=== PATIENT | female | born 1950 | race Caucasian/White ===

== ENCOUNTER → 2016-11-13 | Outpatient (REF) | payer OTHER | LOC: M LAB REF 13:30 | PROVIDERS: ATTEND Physician Assistant Medical | DX: R30.0 Dysuria (principal); R31.0 Gross hematuria ==

== ENCOUNTER → 2017-02-12 | Outpatient (REF) | payer OTHER | LOC: M LAB REF 13:05 | PROVIDERS: ATTEND Family Medicine | DX: R31.0 Gross hematuria (principal) ==

== ENCOUNTER → 2017-04-13 | Outpatient (CLI) | payer OTHER ==
--- NOTE | 2017-04-13 10:03 | REPMRS ---
Patient History The patient states she had a clinical breast exam in February 2017.Patient is postmenopausal. Benign radio exam breast specimen of the right breast, August 09, 2015. Benign stereotatic loc for ea lesion of the right breast, August 09, 2015. Digital Mammo Screening Bilat: April 13, 2017 - Exam #: [id number] Bilateral CC and MLO view(s) were taken. Technologist: Anisha Devine, Technologist Prior study comparison: April 11, 2016, right breast digital mammo diagnostic unilateral performed at [facility]. August 09, 2015, right breast digital bilateral screening mammo performed at [facility]. July 07, 2015, digital bilateral screening mammo, performed at [facility]. FINDINGS: There are scattered fibroglandular densities. There has been no change in the appearance of the mammogram from the prior studies. There is a mild amount of scattered fibroglandular density which is fairly symmetric. There is no interval development of dominant mass, architectural distortion, or clustered microcalcification suggestive of malignancy. ASSESSMENT: BI-RADS/ACR category 1 mammogram. Negative. Recommendation Routine screening mammogram in 1 year (for women over age 40). This mammogram was interpreted with the aid of an FDA-approved computer-aided dectection system. Electronically Signed By: Jarret Dick MD 04/13/17 0213
== END ==
LOC: M RAD 08:03
PROVIDERS: ATTEND Family Medicine
DX: Z12.31 Encounter for screening mammogram for malignant neoplasm of breast (principal); Z78.0 Asymptomatic menopausal state

== ENCOUNTER → 2017-09-14 | Outpatient (REF) | payer OTHER ==
[2017-09-14 12:27] LABS: BASO # 0.1 10^3/uL (0.0-0.2); BASO % 0.6 % (0.0-1.0); EOS # 0.2 10^3/uL (0.0-0.50); IMMATURE GRANULOCYTE % 0.4 % (0-0); LYMPH # 2.6 10^3/uL (1.5-4.5); LYMPH % 32.9 % (24.0-44.0); MEAN CORPUSCULAR HGB CONC 33.8 g/dl (32.0-36.5); MEAN CORPUSCULAR VOLUME 91.6 fl (80.0-96.0); MONO # 0.5 10^3/uL (0.0-0.8); MONO % 6.2 % (0.0-5.0); NEUTROPHILS # 4.6 10^3/uL (1.8-7.7); NEUTROPHILS % 57.9 % (36.0-66.0); PLATELET COUNT, AUTOMATED 309 10^3/uL (150-450); RED CELL DISTRIBUTION WIDTH 12.8 % (11.5-14.5); WHITE BLOOD COUNT 7.9 10^3/uL (4.0-10.0)
[2017-09-14 12:40] LABS: ALBUMIN 3.8 GM/DL (3.2-5.2); ALKALINE PHOSPHATASE 101 U/L (45-117); ALT/SGPT 27 U/L (12-78); ANION GAP 7 MEQ/L (8-16); AST/SGOT 14 U/L (7-37); BILIRUBIN,TOTAL 0.6 MG/DL (0.2-1.0); BLOOD UREA NITROGEN 18 MG/DL (7-18); CALCIUM LEVEL 9.5 MG/DL (8.8-10.2); CARBON DIOXIDE LEVEL 30 MEQ/L (21-32); CHLORIDE LEVEL 103 MEQ/L (98-107); CHOLESTEROL LEVEL 154 MG/DL (<200); CREATININE FOR GFR 0.61 MG/DL (0.55-1.02); GLOMERULAR FILTRATION RATE > 60.0 (>45); GLUCOSE, FASTING 137 MG/DL (80-110); POTASSIUM SERUM 4.7 MEQ/L (3.5-5.1); SODIUM LEVEL 140 MEQ/L (136-145); TOTAL PROTEIN 7.6 GM/DL (6.4-8.2); TRIGLYCERIDES LEVEL 139 MG/DL (<150)
== END ==
LOC: M LABDRAW1 09:12
PROVIDERS: ATTEND Family Medicine
DX: E11.9 Type 2 diabetes mellitus without complications (principal)

== ENCOUNTER → 2017-09-19 | Outpatient (REF) | payer OTHER | LOC: M LAB REF 12:52 | PROVIDERS: ATTEND Family Medicine | DX: E11.9 Type 2 diabetes mellitus without complications (principal) ==

== ENCOUNTER → 2017-12-17 | Outpatient (REF) | payer OTHER ==
[2017-12-17 11:56] LABS: ALBUMIN 3.8 GM/DL (3.2-5.2); ALBUMIN/GLOBULIN RATIO 1.06 (1.00-1.93); ALKALINE PHOSPHATASE 98 U/L (45-117); ALT/SGPT 19 U/L (12-78); ANION GAP 9 MEQ/L (8-16); AST/SGOT 14 U/L (7-37); BILIRUBIN,TOTAL 0.4 MG/DL (0.2-1.0); BLOOD UREA NITROGEN 22 MG/DL (7-18); CALCIUM LEVEL 9.3 MG/DL (8.8-10.2); CARBON DIOXIDE LEVEL 27 MEQ/L (21-32); CHLORIDE LEVEL 104 MEQ/L (98-107); CREATININE FOR GFR 0.65 MG/DL (0.55-1.30); GLOMERULAR FILTRATION RATE > 60.0 (>45); GLUCOSE, FASTING 154 MG/DL (70-100); POTASSIUM SERUM 4.2 MEQ/L (3.5-5.1); SODIUM LEVEL 140 MEQ/L (136-145); TOTAL PROTEIN 7.4 GM/DL (6.4-8.2)
[2017-12-17 12:39] LABS: ESTIMATED AVERAGE GLUCOSE 146 MG/DL (60-110); HEMOGLOBIN A1c 6.7 %
== END ==
LOC: M LABDRAW1 08:17
DX: E11.9 Type 2 diabetes mellitus without complications (principal); E55.9 Vitamin D deficiency, unspecified

== ENCOUNTER → 2018-04-15 | Outpatient (CLI) | payer OTHER | LOC: M RAD 08:25 | DX: Z12.31 Encounter for screening mammogram for malignant neoplasm of breast (principal); Z92.89 Personal history of other medical treatment | CPT/HCPCS: 77067 ==

== ENCOUNTER → 2018-06-20 | Outpatient (REF) | payer OTHER ==
[2018-06-20 12:56] LABS: BASO % 0.6 % (0.0-1.0); EOS # 0.1 10^3/uL (0.0-0.50); EOS % 1.5 % (0.0-3.0); HEMATOCRIT 39.4 % (36.0-47.0); HEMOGLOBIN 13.2 g/dl (12.0-15.5); IMMATURE GRANULOCYTE % 0.5 % (0-3.0); LYMPH % 30.7 % (24.0-44.0); MEAN CORPUSCULAR HEMOGLOBIN 30.8 pg (27.0-33.0); MEAN CORPUSCULAR HGB CONC 33.5 g/dl (32.0-36.5); MEAN CORPUSCULAR VOLUME 91.8 fl (80.0-96.0); MONO # 0.4 10^3/uL (0.0-0.8); MONO % 6.4 % (0.0-5.0); NEUTROPHILS # 3.9 10^3/uL (1.8-7.7); NEUTROPHILS % 60.3 % (36.0-66.0); PLATELET COUNT, AUTOMATED 304 10^3/uL (150-450); RED BLOOD COUNT 4.29 10^6/uL (4.00-5.40); RED CELL DISTRIBUTION WIDTH 12.8 % (11.5-14.5); WHITE BLOOD COUNT 6.5 10^3/uL (4.0-10.0)
[2018-06-20 13:08] LABS: TOTAL 25(OH) VITAMIN D 57.2 NG/ML (30.0-100.0)
[2018-06-20 13:20] LABS: ALBUMIN 3.7 GM/DL (3.2-5.2); ALKALINE PHOSPHATASE 99 U/L (45-117); ALT/SGPT 27 U/L (12-78); ANION GAP 8 MEQ/L (8-16); AST/SGOT 15 U/L (7-37); BILIRUBIN,TOTAL 0.7 MG/DL (0.2-1.0); BLOOD UREA NITROGEN 21 MG/DL (7-18); CALCIUM LEVEL 9.1 MG/DL (8.8-10.2); CARBON DIOXIDE LEVEL 26 MEQ/L (21-32); CHLORIDE LEVEL 106 MEQ/L (98-107); CHOLESTEROL LEVEL 150 MG/DL (<200); CHOLESTEROL RISK RATIO 3.488 (<5); CREATININE FOR GFR 0.61 MG/DL (0.55-1.30); GLOMERULAR FILTRATION RATE > 60.0 (>45); GLUCOSE, FASTING 145 MG/DL (70-100); HDL CHOLESTEROL 43 MG/DL (>40); LDL CHOLESTEROL 82.2 MG/DL (<100); NON-HDL-C 107 MG/DL; POTASSIUM SERUM 4.3 MEQ/L (3.5-5.1); SODIUM LEVEL 140 MEQ/L (136-145); TOTAL PROTEIN 7.4 GM/DL (6.4-8.2); TRIGLYCERIDES LEVEL 124 MG/DL (<150)
[2018-06-20 15:20] LABS: ESTIMATED AVERAGE GLUCOSE 146 MG/DL (60-110); HEMOGLOBIN A1c 6.7 %
== END ==
LOC: M LABDRAW1 12:30
DX: E11.9 Type 2 diabetes mellitus without complications (principal)

== ENCOUNTER → 2019-03-06 | Outpatient (REF) | payer OTHER ==
[2019-03-06 12:48] LABS: BLOOD UREA NITROGEN 17 MG/DL (7-18); CALCIUM LEVEL 9.6 MG/DL (8.8-10.2); CARBON DIOXIDE LEVEL 28 MEQ/L (21-32); CHLORIDE LEVEL 105 MEQ/L (98-107); CREATININE FOR GFR 0.69 MG/DL (0.55-1.30); GLOMERULAR FILTRATION RATE > 60.0 (>39); GLUCOSE, FASTING 165 MG/DL (70-100); POTASSIUM SERUM 4.3 MEQ/L (3.5-5.1); SODIUM LEVEL 139 MEQ/L (136-145)
[2019-03-06 12:51] LABS: HEMOGLOBIN A1c 7.3 %
== END ==
LOC: M LABDRAW1 11:50
PROVIDERS: ATTEND Family Medicine
DX: E11.36 Type 2 diabetes mellitus with diabetic cataract (principal)

== ENCOUNTER → 2019-03-11 | Outpatient (REF) | payer BC ==
[2019-03-11 14:36] LABS: MALB URINE SIEMENS 19.3 MG/L; MAU/CREAT RATIO 17.3 MCG/MG (0.0-30.0)
== END ==
LOC: M LAB REF 13:27
PROVIDERS: ATTEND Family Medicine
DX: E11.36 Type 2 diabetes mellitus with diabetic cataract (principal)

== ENCOUNTER → 2019-03-27 | Outpatient (CLI) | payer BC, MEDICARE ==
--- NOTE | 2019-03-27 15:18 | REP ---
Pelvic sonography: History: Intramural leiomyoma of the uterus. No comparison sonography. Comparison is made with images from MRI study of the hips January 11, 2018. Findings: Transabdominal and transvaginal scanning are performed. Uterine dimensions are normal at 7.4 x 3.5 x 3.4 cm. Endometrial echo is 1.1 cm thick. Endometrial echo is somewhat heterogeneous. There is a heterogeneous 2.4 x 2.6 x 2.5 cm mass along the left lateral aspect of the uterus as seen on transvaginal images. This appears to be a subserosal fibroid. There is some calcification seen at the fundal endometrium. No adnexal mass or cyst is seen. Neither ovary could be directly visualized however transabdominally or transvaginally. Impression: 2.6 cm subserosal heterogeneous lesion to the left of midline in the uterus consistent with fibroid. Electronically Signed by Issa Dick MD 03/27/2019 03:58 P
== END ==
LOC: M RAD 12:51
PROVIDERS: ATTEND Obstetrics & Gynecology
DX: D25.9 Leiomyoma of uterus, unspecified (principal)

== ENCOUNTER → 2019-04-25 | Outpatient (CLI) | payer MEDICARE ==
[~2019-04-25] MED LIST: BIMA01SOL OU; BIOT1CAP2 PO; COMB0.2S OU; LOSA25TA14 PO; METF-791 PO
--- NOTE | 2019-04-25 09:59 | REPMRS ---
Patient History The patient states she had a clinical breast exam in January 2019. Patient is postmenopausal. Benign radio exam breast specimen of the right breast, August 09, 2015. Benign stereotatic loc for ea lesion of the right breast, August 09, 2015. 3D TOMOSYNTHESIS WAS PERFORMED. [facility] lifetime risk for breast cancer is 4.9%. Digital Mammo Screening Bilat: April 25, 2019 - Exam #: [id number] Bilateral CC and MLO view(s) were taken. Technologist: Abida Clay Technologist Prior study comparison: April 15, 2018, bilateral digital mammo screening bilat performed at [facility]. April 13, 2017, bilateral digital mammo screening bilat performed at [facility]. FINDINGS: There are scattered fibroglandular densities. There has been no change in the appearance of the mammogram from the prior studies. There is a mild amount of residual fibroglandular tissue which is fairly symmetric. There is no interval development of dominant mass, architectural distortion, or clustered microcalcification suggestive of malignancy. Assessment: BI-RADS/ACR category 1 mammogram. Negative Mammogram. Recommendation Routine screening mammogram in 1 year (for women over age 40). This mammogram was interpreted with the aid of an FDA-approved computer-aided dectection system. Electronically Signed By: Zay Abarca MD 04/25/19 0958
== END ==
LOC: M RAD 07:50
PROVIDERS: ATTEND Family Medicine
DX: Z12.31 Encounter for screening mammogram for malignant neoplasm of breast (principal); Z78.0 Asymptomatic menopausal state

== ENCOUNTER → 2019-05-19 | Outpatient (REF) | payer MEDICARE ==
[~2019-05-19] MED LIST changes: -METF-791 PO; +METF500T4 PO
[2019-05-19 13:40] LABS: BASO % 0.6 % (0.0-1.0); EOS # 0.1 10^3/uL (0.0-0.50); EOS % 1.9 % (0.0-3.0); HEMATOCRIT 39.9 % (36.0-47.0); HEMOGLOBIN 12.9 g/dl (12.0-15.5); LYMPH # 1.8 10^3/uL (1.5-4.5); LYMPH % 27.5 % (24.0-44.0); MEAN CORPUSCULAR HEMOGLOBIN 30.9 pg (27.0-33.0); MEAN CORPUSCULAR HGB CONC 32.3 g/dl (32.0-36.5); MEAN CORPUSCULAR VOLUME 95.7 fl (80.0-96.0); MONO # 0.4 10^3/uL (0.0-0.8); MONO % 6.1 % (0.0-5.0); NEUTROPHILS # 4.3 10^3/uL (1.8-7.7); NEUTROPHILS % 63.6 % (36.0-66.0); PLATELET COUNT, AUTOMATED 281 10^3/uL (150-450); RED BLOOD COUNT 4.17 10^6/uL (4.00-5.40); WHITE BLOOD COUNT 6.7 10^3/uL (4.0-10.0)
[2019-05-19 13:55] LABS: HEMOGLOBIN A1c 7.1 %
[2019-05-19 14:10] LABS: ALBUMIN 3.8 GM/DL (3.2-5.2); ALT/SGPT 23 U/L (12-78); BILIRUBIN,TOTAL 0.6 MG/DL (0.2-1.0); BLOOD UREA NITROGEN 23 MG/DL (7-18); CALCIUM LEVEL 9.3 MG/DL (8.8-10.2); CARBON DIOXIDE LEVEL 28 MEQ/L (21-32); CHLORIDE LEVEL 108 MEQ/L (98-107); GLOMERULAR FILTRATION RATE > 60.0 (>39); GLUCOSE, FASTING 134 MG/DL (70-100); POTASSIUM SERUM 4.3 MEQ/L (3.5-5.1); SODIUM LEVEL 141 MEQ/L (136-145); TOTAL PROTEIN 7.1 GM/DL (6.4-8.2)
== END ==
LOC: M LABDRAW1 12:02
PROVIDERS: ATTEND Family Medicine
DX: E11.69 Type 2 diabetes mellitus with other specified complication (principal); I10 Essential (primary) hypertension

== ENCOUNTER 2019-06-05 06:04 | Inpatient (IN) | payer MEDICARE ==
[~2019-06-05] VITALS: Ht 152.4 cm; Wt 57.5 kg
[~2019-06-05 06:04] MED LIST changes: +METF-791 PO; -METF500T4 PO
[2019-06-05 06:33] LABS: HEMATOCRIT 41.1 % (36.0-47.0); HEMOGLOBIN 13.7 g/dl (12.0-15.5); MEAN CORPUSCULAR HEMOGLOBIN 30.8 pg (27.0-33.0); MEAN CORPUSCULAR HGB CONC 33.3 g/dl (32.0-36.5); MEAN CORPUSCULAR VOLUME 92.4 fl (80.0-96.0); PLATELET COUNT, AUTOMATED 295 10^3/uL (150-450); RED BLOOD COUNT 4.45 10^6/uL (4.00-5.40); WHITE BLOOD COUNT 7.7 10^3/uL (4.0-10.0)
[2019-06-05] MEDS ORDERED: DOXYCYCLINE HYCLATE 100 MG/10 ML VIAL As Ordered ONE (06:46)
[2019-06-05] MEDS ORDERED: VASOPRESSIN INJ 20 UNITS/ML VIAL As Ordered ONE (06:47)
[2019-06-05] MEDS ORDERED: PHENAZOPYRIDINE 100 MG TAB PO ONE (07:15)
[2019-06-05] MEDS ORDERED: PROPOFOL 200 MG/20 ML VIAL As Ordered ONE (08:20)
[2019-06-05] MEDS ORDERED: ROCURONIUM BROMIDE 50 MG/5 ML VIAL As Ordered ONE ×3 (08:20→11:09)
[2019-06-05] MEDS ORDERED: ONDANSETRON 4MG/2ML VIAL (J2405) As Ordered ONE (08:20)
[2019-06-05] MEDS ORDERED: HYDROmorphone HCL 2 MG/ML 1ML VIAL (J1170) As Ordered ONE (08:20)
[2019-06-05] MEDS ORDERED: ACETAMINOPHEN 1000MG 100ML IV BTL (OFIRMEV) (J0131 PER 10MG) As Ordered ONE (08:20)
[2019-06-05] MEDS ORDERED: MIDAZOLAM INJ 2 MG/2 ML VIAL (J2250) As Ordered ONE (08:20)
[2019-06-05] MEDS ORDERED: PHENYLephrine HCL 500 MCG/5 ML (100MCG/ML) SYRINGE (J2370) As Ordered ONE ×2 (08:20→12:38)
[2019-06-05] MEDS ORDERED: LIDOCAINE 2% INJ 100 MG/5 ML SDV (FOR ANES.) As Ordered ONE (08:20)
[2019-06-05] MEDS ORDERED: SUGAMMADEX SODIUM 500 MG/5 ML VIAL (BRIDION) As Ordered ONE (08:20)
[2019-06-05] MEDS ORDERED: fentaNYL 100 MCG/2 ML INJECTION (J3010) As Ordered ONE (08:20)
[2019-06-05] MEDS ORDERED: dexameTHASONE 4 MG/ML 1ML VIAL (J1100) As Ordered ONE (08:20)
[2019-06-05] MEDS ORDERED: KETOROLAC 60 MG/2 ML VIAL (J1885) As Ordered ONE (08:42)
[2019-06-05] MEDS ORDERED: ePHEDrine SULFATE 25 MG/5 ML(5MG/ML) SYRINGE As Ordered ONE ×2 (08:55→12:39)
[2019-06-05] MEDS ORDERED: ceFAZolin 2 GM/D5W 50 ML IV BAG (J0690 PER 500MG) As Ordered ONE (11:26)
[2019-06-05] MEDS ORDERED: HumuLIN R (REGULAR) INSULIN (NovoLIN R) **100U/ML** PER UNIT As Ordered ONE (12:53)
[2019-06-05] MEDS ORDERED: ZOSYN 3.375 GM VIAL (J2543) As Ordered ONE (13:53)
[2019-06-05] MEDS ORDERED: MORPHINE 1MG/ML IN 0.9% NACL 100ML IV BAG As Ordered ONE (15:00)
[2019-06-05] MEDS ORDERED: oxyCODONE 5MG TAB PO PRN (15:00)
[2019-06-05] MEDS ORDERED: NALBUPHINE HCL 10 MG/ML AMP (J2300) IV PRN (15:00)
[2019-06-05] MEDS ORDERED: ONDANSETRON 4MG/2ML VIAL (J2405) IV PRN (15:00)
[2019-06-05] MEDS ORDERED: diphenhydrAMINE INJ 50MG/ML VIAL (J1200) IV PRN (15:00)
[2019-06-05] MEDS ORDERED: HYDROMORPHONE HCL 0.5 MG/ 0.5 ML SYRINGE (J1170 PER 1) IV PRN (15:00)
[2019-06-05] MEDS ORDERED: MORPHINE 1MG/ML IN 0.9% NACL 100ML IV BAG IV PRN (15:00)
[2019-06-05] MEDS ORDERED: LR 1,000 ML IV SCH (15:00)
[2019-06-05] MEDS ORDERED: EPIDURAL/PCA KEYS XX PRN (15:00)
[2019-06-05] MEDS ORDERED: PERCOCET 5MG/325MG TAB PO PRN (15:00)
[2019-06-05] MEDS ORDERED: NALOXONE INJ 0.4 MG/1 ML VIAL (J2310) IV PRN (15:00)
[2019-06-05] MEDS ORDERED: fentaNYL 100 MCG/2 ML INJECTION (J3010) IV PRN (15:00)
[2019-06-05] MEDS: LR 1,000 ML IV SCH (15:15)
[2019-06-05 16:20] VITALS: BP 133/67
[2019-06-05 17:00] VITALS: BP 136/68
[2019-06-05 17:30] VITALS: BP 122/72
[2019-06-05 20:00] VITALS: BP 110/60
[2019-06-05] MEDS: PIPERACILLIN/TAZOBACTAM SOD 3.375 GM in D5W MINI-BAG PLUS 50 ML IV SCH (20:59)
[2019-06-05 21:00] VITALS: BP 114/59
[2019-06-05] MEDS: LATANOPROST 0.005% OPHTH SOLN 2.5 ML OU SCH (21:53)
[2019-06-05] MEDS: COMBIGAN OPTH OU SCH (22:00)
[2019-06-05] MEDS: IBUPROFEN 600 MG TAB PO PRN (22:58)
[2019-06-06] VITALS (8 sets, daily range): BP systolic 91–131; BP diastolic 52–62
[2019-06-06] MEDS: LR 1,000 ML IV SCH ×4 (00:31→23:15)
[2019-06-06] MEDS: PIPERACILLIN/TAZOBACTAM SOD 3.375 GM in D5W MINI-BAG PLUS 50 ML IV SCH ×5 (02:52→20:44)
[2019-06-06 03:25] LABS: MEAN CORPUSCULAR HEMOGLOBIN 32.1 pg (27.0-33.0); MEAN CORPUSCULAR HGB CONC 33.4 g/dl (32.0-36.5); MEAN CORPUSCULAR VOLUME 96.1 fl (80.0-96.0); PLATELET COUNT, AUTOMATED 250 10^3/uL (150-450); RED BLOOD COUNT 3.33 10^6/uL (4.00-5.40); WHITE BLOOD COUNT 14.8 10^3/uL (4.0-10.0)
[2019-06-06 03:37] LABS: HEMOGLOBIN 10.7 g/dl (12.0-15.5)
[2019-06-06] MEDS ORDERED: LR 1,000 ML IV ONE ×2 (04:00→07:00)
[2019-06-06] MEDS ORDERED: FUROSEMIDE 20 MG/2 ML VIAL (J1940) IV ONE (05:30)
[2019-06-06 06:34] LABS: CALCIUM LEVEL 7.9 MG/DL (8.8-10.2); CREATININE FOR GFR 0.99 MG/DL (0.55-1.30)
[2019-06-06] MEDS: IBUPROFEN 600 MG TAB PO PRN ×2 (07:15→14:35)
[2019-06-06] MEDS: LOSARTAN 25 MG TAB PO SCH (08:37)
[2019-06-06] MEDS: NORCO, ANEXSIA 5/325MG TABLET (HYDROcodone/ACETAMINOPHEN) PO PRN (08:39)
--- NOTE | 2019-06-06 09:56 | CR.PDOC ---
General Surgery Consultation Date of Consultation 06/06/19 History and Physical CONSULT REPORT FOR: Zoe Salinas MD REASON FOR CONSULTATION: Rectal perforation, rectal injury during vaginal hysterectomy HISTORY OF PRESENT ILLNESS: I was asked to consult intraoperatively in regards to Ms. Abreu for assistance and management of the recognized a echogenic rectal injury during vaginal hysterectomy. PAST MEDICAL HISTORY: 1. . PAST SURGICAL HISTORY: INCLUDES: 1. . PREVIOUS ANESTHESIA REACTIONS: ALLERGIES: Please see below. FAMILY HISTORY: . HOME MEDICATIONS: Please see below. REVIEW OF SYSTEMS: Unobtainable PHYSICAL EXAMINATION: Patient is under general anesthesia on the lithotomy position in [facility]. Her abdomen is prepped and draped. There is a) instill incision with radha on them. She has a vaginal wound from the vaginal hysterectomy. On the lower part of the wound is a piece of bowel with an anterior opening just underneath the posterior vaginal septum. I estimate roughly about 3 cm in length. This was along the general tear. The edges appears healthy and nonbleeding. I was told that there was some stool that leaked though at present I did wasn't seeing any. ANCILLARIES: . LABORATORY DATA: Please see below. IMAGING STUDIES: . IMPRESSION AND PLAN: Iatrogenic rectal injury less than one third of the wall of the involved colon roughly about 3 cm in length I approximated this to be mid rectum roughly about 10 cm from the anal verge This is repaired in a single layer with Dr. Salinas. I did a flexible sigmoidoscopy to test the closure in the seems airtight and watertight. I asked her to leave a drain for postoperative monitoring. I will follow the patient along during the admission. For now keep the patient nothing by mouth and also on antibiotics. Suggest using Zosyn 3.375 g IV every 6 hours. Further recommendation depending on the patient's course.. Vital Signs Vital Signs Date Time Temp Pulse Resp B/P (MAP) Pulse Ox O2 Delivery O2 Flow Rate FiO2 06/06/19 08:39 18 06/06/19 08:37 131/62 06/06/19 06:30 2.0 06/06/19 06:30 98.2 101 98 I&Os I&O- Last 24 Hours up to 6 AM 06/06/19 06:00 Intake Total 4761 ml Output Total 1550 ml Balance 3211 ml Laboratory Data Labs 24H Laboratory Tests 2 06/05/19 14:48: Bedside Glucose (Misc Panel) 178H 06/05/19 17:26: Bedside Glucose (Misc Panel) 171H 06/06/19 03:13: Nucleated Red Blood Cells % (auto) 0.0 06/06/19 06:04: Anion Gap 7L, Glomerular Filtration Rate 59.0, Blood Urea Nitrogen 25H, Creatinine 0.99, Sodium Level 137, Potassium Level 4.0, Chloride Level 104, Carbon Dioxide Level 26, Calcium Level 7.9L CBC/BMP Laboratory Tests 06/06/19 03:13 Red Blood Count 3.33 L, Mean Corpuscular Volume 96.1 H, Mean Corpuscular Hemoglobin 32.1, Mean Corpuscular Hemoglobin Concent 33.4, Red Cell Distribution Width 13.1 06/06/19 06:04 Calcium Level 7.9 L Home Medications Scheduled Bimatoprost (Lumigan) 0.01% 2.5ML Drops, 1 DROP OU QHS, (Reported) Biotin (Biotin) 1 Mg Capsule, 1 MG PO DAILY, (Reported) Brimonidine Tartrate/Timolol (Combigan 0.2%-0.5% Eye Drops) 5 Ml Drops, 1 DROP OU BID, (Reported) Losartan Potassium (Losartan Potassium) 25 Mg Tablet, 25 MG PO DAILY, (Reported) Metformin HCl (Metformin HCl ER) 500 Mg Tab.er.24h, 1,000 MG PO QPM, (Reported) Allergies Coded Allergies: No Known Allergies (Unverified , 05/15/19) JOSY AVALOS MD Jun 06, 2019 09:56
[2019-06-06] MEDS ORDERED: NS 500 ML IV ONE (10:00)
--- NOTE | 2019-06-06 10:05 | IPNPDOC ---
Subjective General Date/Time Seen The patient was seen on 06/06/19 at 09:56. Subject Chief Complaint/History The patient is a 69-year-old female admitted with a reason for visit of Symptomatic Prolaps, Tender Fibroids. Patient seen at the bedside. She looks comfortable, wide-awake. Reports not passing flatus yet having some gas cramps and burping some but denies any overt nausea. She's been hemodynamically stable postop. Urine looks concentrated in the bag. Introduced myself to her and discussed with her intraoperative findings of rectal injury. Current Medications Current Medications Current Medications Medications (Trade) Dose Ordered Sig/Idalmis Route PRN Reason Start Time Stop Time Status Last Admin Dose Admin Acetaminophen/ Hydrocodone Bitart (Rosebud, Anexsia 5/325) 2 tab Q4H PRN PO PAIN 06/06/19 06:00 06/06/19 08:39 Cefazolin Sodium/ Dextrose 2 gm/IV Miscellaneous Supplies 50 ml @ 75 mls/hr Q8H IV 06/05/19 06:00 06/05/19 06:55 DC Diphenhydramine HCl (Benadryl) 12.5 mg Q4HP PRN IV ITCHING 06/05/19 15:00 06/06/19 06:00 DC Fentanyl Citrate (Sublimaze) 25 mcg Q5MP PRN IV MODERATE PAIN (PS 4-7) 06/05/19 15:00 06/05/19 16:00 DC Hydromorphone HCl (Dilaudid) 0.4 mg Q5MP PRN IV MODERATE/SEVERE PAIN (PS 5-10) 06/05/19 15:00 06/05/19 16:00 DC Ibuprofen (Advil) 600 mg Q6H PRN PO PAIN 06/05/19 15:15 06/06/19 07:15 Lactated Ringer's 1,000 ml @ 75 mls/hr [id number] IV 06/05/19 15:00 06/05/19 16:00 DC Lactated Ringer's 1,000 ml @ 125 mls/hr Q8H IV 06/05/19 15:15 06/06/19 08:36 Latanoprost (Xalatan 0.005% Op Soln) 1 drop QHS OU 06/05/19 21:00 06/05/19 21:53 Losartan Potassium (Cozaar) 25 mg DAILY PO 06/06/19 09:00 06/06/19 08:37 Miscellaneous (Unresolved Clarification Entry) SEE LABEL COMMENTS DAILY XX 06/05/19 09:00 06/05/19 17:28 DC Miscellaneous (Unresolved Clarification Entry) SEE LABEL COMMENTS DAILY XX 06/05/19 09:00 06/05/19 17:28 DC Miscellaneous (Unresolved Patient Own Med Order) SEE LABEL COMMENTS DAILY XX 06/05/19 09:00 Morphine Sulfate (Morphine Sulfate In 0.9%Nacl Iv Bag) ASDIRECTED PRN IV SEE LABEL COMMENTS 06/05/19 15:00 06/06/19 06:00 DC 06/05/19 15:10 Nalbuphine HCl (Nubain) 2.5 mg Q6HP PRN IV PRURITIS 06/05/19 15:00 06/06/19 06:00 DC Naloxone HCl (Narcan) 0.1 mg Q5MP PRN IV SEE LABEL COMMENTS 06/05/19 15:00 06/06/19 06:00 DC Non-Formulary Medication (Epidural/JAVA SECURITY ARCHITECT [place]) USE THIS ENTRY TO VEND ... ASDIRECTED PRN XX SEE LABEL COMMENTS 06/05/19 15:00 06/06/19 06:00 DC Ondansetron HCl (ZOFRAN INJection) 4 mg Q4HP PRN IV NAUSEA OR VOMITING 06/05/19 15:00 06/05/19 16:00 DC Oxycodone HCl (Roxicodone, Oxyir) 5 mg ASDIRECTED PRN PO MILD/MODERATE PAIN (PS 1-7) 06/05/19 15:00 06/05/19 16:00 DC Oxycodone/ Acetaminophen (Percocet 5mg/ 325mg Tablet) 1 tab ASDIRECTED PRN PO MILD/MODERATE PAIN (PS 1-7) 06/05/19 15:00 06/05/19 16:00 DC Patient Own Medication (Patient'S Own Med) 1 DROP OU BID BID OU 06/05/19 21:00 Piperacillin Sod/ Tazobactam Sod 3.375 gm/Dextrose 50 ml @ 50 mls/hr Q6H IV 06/05/19 20:00 06/06/19 08:36 Allergies Coded Allergies: No Known Allergies (Unverified , 05/15/19) Objective Physical Examination Examination GENERAL APPEARANCE: Looks comfortable. SKIN: Warm and dry. HEENT: Lips appear dry. NECK: Supple, no thyromegaly. No obvious jugular venous distention. LUNGS: Clear to auscultation bilaterally. No wheezing appreciated. HEART: No chest wall abnormalities. Regular rate and rhythm with no murmurs appreciated. ABDOMEN: Abdomen is round, soft, mildly distended, tympanitic to percussion still hypoactive bowel sounds. There is a dressing on top of the Pfannenstiel incision and appears clean and dry. Mild tenderness around that area. She has a vaginal [place] drain in no apparent leakage from this.. EXTREMITIES: Extremities have no deformities. No edema identified. Vital Signs Vital Signs Date Time Temp Pulse Resp B/P (MAP) Pulse Ox O2 Delivery O2 Flow Rate FiO2 06/06/19 08:39 18 06/06/19 08:37 131/62 06/06/19 06:30 2.0 06/06/19 06:30 98.2 101 98 I&Os I&O- Last 24 Hours up to 6 AM 06/06/19 06:00 Intake Total 4761 ml Output Total 1550 ml Balance 3211 ml Laboratory Data Labs 24H Laboratory Tests 2 06/05/19 14:48: Bedside Glucose (Misc Panel) 178H 06/05/19 17:26: Bedside Glucose (Misc Panel) 171H 06/06/19 03:13: Nucleated Red Blood Cells % (auto) 0.0 06/06/19 06:04: Anion Gap 7L, Glomerular Filtration Rate 59.0, Blood Urea Nitrogen 25H, Creatinine 0.99, Sodium Level 137, Potassium Level 4.0, Chloride Level 104, Carbon Dioxide Level 26, Calcium Level 7.9L CBC/BMP Laboratory Tests 06/06/19 03:13 Red Blood Count 3.33 L, Mean Corpuscular Volume 96.1 H, Mean Corpuscular Hemoglobin 32.1, Mean Corpuscular Hemoglobin Concent 33.4, Red Cell Distribution Width 13.1 06/06/19 06:04 Calcium Level 7.9 L Impression Postoperative day one repair for rectal injury, mid rectum 10 cm from the anal verge I'll advance her to clear liquids. She still looks a bit dry and her urine is concentrated I'll continue the IV fluids and give her 500 mL of saline bolus. I instructed her to ambulate to the hallways. Continue monitoring to drain continue with IV antibiotics. I told her I expect her to be in the hospital through to the weekend and we will reevaluate and continue to monitor drainage for possible breakdown of the repair. I discussed with her expected postoperative course as well as possible complications including leakage and breakdown of the repair for which she may need diversion if this happens. Plan / VTE VTE Prophylaxis Ordered?: Yes JOSY AVALOS MD Jun 06, 2019 10:05
--- NOTE | 2019-06-06 10:13 | ROOPDOC ---
[facility] Report Of Operation Report of Operation DATE OF PROCEDURE: 06/06/19 PREPROCEDURE DIAGNOSES: . The iatrogenic rectal injury POSTPROCEDURE DIAGNOSES: . Iatrogenic rectal injury PROCEDURE: Intraoperative consultation, flexible sigmoidoscopy. SURGEON: Epifanio Avalos MD ANESTHESIA: Gen. anesthesia ESTIMATED BLOOD LOSS: None DESCRIPTION OF PROCEDURE: I was asked intraoperatively consult with regards to erectile denies rectal injury during vaginal hysterectomy. At the time that I came into the operating room patient is under general anesthesia. She is on lithotomy position her abdomen and perineum then prepped and draped. She had a Pfannenstiel incision that was closed with radha abdominally. Examination of the perineum and the vaginal wound shows roughly 3 cm longitudinal opening to what appears to be mid rectum. This is underneath the posterior vaginal septum. I was told that there was some leakage of stool. A standard I was present there was no stool leaking. The edges of the rectal opening seems healthy without any bleeding or ischemia. The whole of the rectal wall intraluminally seems healthy. I asked Dr. Salinas to perform a digital rectal examination to see how far the extent of the injury or how deep the rectal injury was with her doing rectal exam the dictating finger was not visible. We then got an EEA sizer 9 inserted this transanally and despite the shaft of the sizer going midway I wasn't fully able to visualize the sizer from the opening of the rectum. This point I asked for a flexible colonoscope and proctosigmoidoscopy was performed. While awaiting for the tower to be set up Dr. Salinas performed a single layer repair with longitudinal closure of the colotomy using silk sutures. She also did a cystoscopy at that point. There were no visible or noticeable bladder injury. After the repair he performed a proctosigmoidoscopy was a flexible colonoscope. The anterior injury was visualized this is roughly about 10-12 cm from the anal verge. The rectum seems to be dropping down to the rectal vault so possibly this could be slightly higher. I got past the area of injury and the rest of the colon up to 30 cm appears healthy with solid stools in between the portions of the rectum and colon that I could see and examine. I insufflated at the area of the repair and noted air and water bubbling at the repair with both air insufflation and water irrigation. Dr Salinas took down the repair and again performed a running full- thickness repair. After she was done again performed flexible proctosigmoidoscopy while visualizing the rectal repair anteriorly through the vaginal vault there was no longer any bubbling of water and air through the repair. There was a little bit of narrowing as this was closed longitudinally but I was able to easily go through with the colonoscope with a good amount of space to spare so clinically I don't think this will narrow down to much. I didn't scrub and after room in Dr. Salinas continued with the closure of the vaginal septum to render case. I asked her to the with drain for postoperative monitoring at the area of the rectal repair and she left the [place] drain comin g out through the vaginal vault.. EPIFANIO AVALOS MD Jun 06, 2019 10:13
[2019-06-06] MEDS: COMBIGAN OPTH OU SCH ×2 (11:03→20:44)
[2019-06-06] MEDS: SENOKOT S TAB PO SCH ×2 (11:03→20:44)
[2019-06-06] MEDS: ALVIMOPAN 12 MG CAPSULE (ENTEREG) PO SCH ×2 (11:03→20:44)
[2019-06-06] MEDS ORDERED: ONDANSETRON 4MG/2ML VIAL (J2405) IV ONE (13:00)
[2019-06-06] MEDS ORDERED: NORCO, ANEXSIA 5/325MG TABLET (HYDROcodone/ACETAMINOPHEN) PO PRN (13:00)
[2019-06-06] MEDS: HumaLOG INSULIN (NovoLOG) PER UNIT SC SCH ×2 (13:04→18:09)
[2019-06-06] MEDS: LATANOPROST 0.005% OPHTH SOLN 2.5 ML OU SCH (20:45)
[2019-06-06] MEDS ORDERED: HumaLOG INSULIN (NovoLOG) PER UNIT SC SCH (21:00)
[2019-06-07] VITALS (9 sets, daily range): BP systolic 112–141; BP diastolic 62–82
[2019-06-07] MEDS: NORCO, ANEXSIA 5/325MG TABLET (HYDROcodone/ACETAMINOPHEN) PO PRN (00:44)
[2019-06-07] MEDS: PIPERACILLIN/TAZOBACTAM SOD 3.375 GM in D5W MINI-BAG PLUS 50 ML IV SCH ×4 (02:39→20:00)
[2019-06-07 03:57] LABS: HEMATOCRIT 28.8 % (36.0-47.0); HEMOGLOBIN 9.7 g/dl (12.0-15.5); MEAN CORPUSCULAR HEMOGLOBIN 32.1 pg (27.0-33.0); MEAN CORPUSCULAR HGB CONC 33.7 g/dl (32.0-36.5); MEAN CORPUSCULAR VOLUME 95.4 fl (80.0-96.0); PLATELET COUNT, AUTOMATED 256 10^3/uL (150-450); RED BLOOD COUNT 3.02 10^6/uL (4.00-5.40); WHITE BLOOD COUNT 20.2 10^3/uL (4.0-10.0)
[2019-06-07 04:26] LABS: ALBUMIN 2.4 GM/DL (3.2-5.2); ALT/SGPT 16 U/L (12-78); BLOOD UREA NITROGEN 21 MG/DL (7-18); CALCIUM LEVEL 9.1 MG/DL (8.8-10.2); CARBON DIOXIDE LEVEL 27 MEQ/L (21-32); CHLORIDE LEVEL 105 MEQ/L (98-107); CREATININE FOR GFR 0.77 MG/DL (0.55-1.30); GLOMERULAR FILTRATION RATE > 60.0 (>39); GLUCOSE, FASTING 167 MG/DL (70-100); POTASSIUM SERUM 3.3 MEQ/L (3.5-5.1); SODIUM LEVEL 137 MEQ/L (136-145); TOTAL PROTEIN 6.1 GM/DL (6.4-8.2)
--- NOTE | 2019-06-07 04:39 | REPVR ---
EXAM: US Retroperitoneal Limited, Kidneys EXAM DATE/TIME: 06/07/19 (3:08am) CLINICAL HISTORY: 69 year old female with bilateral flank pain (worse on left side). Prior surgery. Surgery date: Post-operative (0-2 days). Surgery type: Patient had total hysterectomy on 06/05/19 and bowel was perforated and then repaired on 06/06/19. Increased abdominal pain. TECHNIQUE: Imaging protocol: Real-time ultrasound of the retroperitoneum with image documentation. Examination was focused on the kidneys. COMPARISON: No relevant prior studies available FINDINGS: Right kidney: No stones. No hydronephrosis. Measures 10.4 cm in length. Left kidney: No stones. Mild left hydronephrosis. Measures 11.8 cm in length. Urinary bladder: Catheter in place. Not well visualized do to overlying bowel gas and bandaging. IMPRESSION: Mild left hydronephrosis. No upper tract stones are seen. The kidneys are each normal in size. Electronically signed by: Laurie Leyva On 06/07/2019 04:38:32 AM
[2019-06-07] MEDS: ALVIMOPAN 12 MG CAPSULE (ENTEREG) PO SCH (08:01)
[2019-06-07] MEDS: LR 1,000 ML IV SCH (08:01)
[2019-06-07] MEDS: LOSARTAN 25 MG TAB PO SCH (08:03)
[2019-06-07] MEDS: SENOKOT S TAB PO SCH (08:03)
[2019-06-07] MEDS: COMBIGAN OPTH OU SCH (08:05)
[2019-06-07] MEDS ORDERED: DEXTROSE 50% 50 ML SYRINGE IV PRN (10:30)
[2019-06-07] MEDS ORDERED: GLUCOSE 4 GM CHEW TABLET PO PRN (10:30)
[2019-06-07] MEDS ORDERED: GLUCAGON FOR INJ 1 MG VIAL (J1610) SC PRN (10:30)
--- NOTE | 2019-06-07 12:08 | REP ---
CT of the abdomen and pelvis without IV or bowel contrast: The patient is status post hysterectomy 06/05/2019. The studies performed for abdominal pain. There are no comparisons. The visualized lower lung ross are unremarkable. There is pneumoperitoneum, likely postsurgical. There is subcutaneous emphysema along the anterior lateral abdominal pastor, likely postsurgical. There is small bowel distension with air-fluid levels, likely ileus. Follow-up is recommended. There is a surgical Jaun drain in the pouch of Nimesh extending into the vaginal vault. There is a focal fluid collection superior anterior to the urinary bladder containing an air-fluid level measuring a 7.3 cm transversely by 6.5 cm AP by 3.4 cm craniocaudad. There appears to be a bowel loop just superior to this fluid collection. The bladder is just inferior to this fluid collection. This is compatible with hematoma or possibly developing abscess. In the visualized lower lung ross are small bilateral pleural effusions. The unenhanced hepatic parenchyma is unremarkable. There are surgical clips in the gallbladder fossa. The unenhanced pancreas, spleen, adrenals and kidneys are unremarkable. The abdominal aorta is unremarkable. Pelvis: There is a focal fluid collection containing air fluid level anterior superior to the bladder as discussed. No free fluid in the pelvis. There is pneumoperitoneum, likely postsurgical. There is a small volume of air in the bladder, possibly post instrumentation. Impression: There is a focal fluid collection containing an air-fluid level anterior superior to the bladder as discussed, possibly a hematoma or developing abscess. There is pneumoperitoneum, likely postsurgical. There is subcutaneous emphysema, likely postsurgical. There is no ascites or free fluid. Dilated small bowel loops with air-fluid levels, ileus versus obstruction. Small bilateral pleural effusions. There is an NG tube with the tip in the stomach. Results are discussed with the surgeon, Dr. Young. Electronically Signed by Zay Rodriguez MD 06/07/2019 12:00 P
[2019-06-07] MEDS: HumaLOG INSULIN (NovoLOG) PER UNIT SC SCH ×2 (13:08→17:34)
[2019-06-07] MEDS: SIMETHICONE 80 MG CHEW TAB PO SCH ×2 (13:28→18:19)
--- NOTE | 2019-06-07 14:56 | ECGEPIP ---
[facility] Test Date: 2019-06-07 Pat Name: RASHAAD ALFARO Department: Room: [place] [address] Gender: Female It Administrator: BELA : 1950 Requested By: Mona TUCKER Order Number: [id number] Reading MD: Latia Valiente Measurements Intervals Luck Rate: 112 P: 16 WI: 151 QRS: 10 QRSD: 86 T: -3 QT: 323 QTc: 442 Interpretive Statements SINUS TACHYCARDIA LOW QRS VOLTAGE IN PRECORDIAL LEADS NONSPECIFIC ST & T-WAVE ABNORMALITY ABNORMAL ECG NO PRIOR Electronically Signed on 06-07-2019 14:55:46 EDT by Latia Valiente
--- NOTE | 2019-06-07 14:59 | CR ---
DATE OF CONSULTATION: 06/07/2019 Dr. Zoe Salinas consultation for hospitalist group. REASON FOR CONSULTATION: Tachycardia. HISTORY: Lashaun Abreu is a 69 year old, who underwent a complicated hysterectomy yesterday. I do not have the operative report available, but there was rectal perforation and rectal injury during vaginal hysterectomy. Patient is tachycardic today. The abdomen is distended, and she has significant leukocytosis. Hospitalist group was consulted for evaluation of tachycardia. She has no chest pain or shortness of breath. There is no current fever. PAST MEDICAL HISTORY: Shows type 2 diabetes, hypertension. ALLERGIES: None known. SOCIAL HISTORY: Nonsmoker. PHYSICAL EXAM: 121/71, pulse 122, respiratory rate 18, 94 oxygen saturation on room air, 97.9 degrees. GENERAL APPEARANCE: Resting comfortably in bed. Nasogastric tube in place. Alert, conversant. HEENT: Unremarkable. Has a nasogastric tube. LUNGS: Clear. HEART: Regular rate and rhythm. ABDOMEN: Soft, distended, probably tender. Less distended since the gastric tube, per staff. No peripheral edema. LABS: White count is 20.2, hemoglobin 9.7, platelets 256. Sodium 137 potassium 3.3, BUN 21, creatinine 0.7, glucose 167. IMPRESSION: 1. Tachycardia. Case discussed with Mona Little NP, who is covering for Dr. Salinas. We discussed the case. EKG was ordered, just shows sinus tachycardia, no arrhythmia. I think her tachycardia is physiologic in response to the physiologic stress of prolonged surgery as well as the abdominal distention and pain. I have the nasogastric tube. I have ordered a stat CT of the abdomen/pelvis. Case was also discussed with Dr. Young, who is covering for Dr. Zhang. 2. Hypertension. I recommend stopping losartan for now until we see where she is going as far as her tachycardia. She is getting intravenous (IV) fluids and seems well hydrated. 3. Diabetes. Change sliding scale insulin to every 6 hours. Daily labs have been ordered for the next several days.
--- NOTE | 2019-06-08 10:51 | IPN ---
DATE: 06/07/2019 Subjectively, the patient had some abdominal distension overnight, had a nasogastric (NG) tube placed and has had some minimal bilious output. She has been very distended and with some nausea. However, at the bedside, I am not seeing a lot of NG tube output. She is quite tympanitic throughout but more importantly, she has been very tachycardiac and has developed this ileus 2 days out from operative intervention. On her physical exam, specifically her abdomen is tympanitic throughout without significant guarding, without rebound, without peritoneal signs, truly not a significant abdominal exam other than the distension per se. A CT scan was ordered because of elevated white count and tachycardia, and I reviewed the CT scan with Dr. Rodriguez who initially felt that there was no evidence of abscess and noted the Jaun drain, which was in the pelvis with some air around the Comstock drain but no evidence of obvious fistula. He noticed some chronic thickening in an ileus pattern. I discussed the findings with the family; however, after that, I a received a phone call from Dr. Rodriguez who felt that the initial fluid collection that he saw in the area of the bladder may not indeed be the bladder and may specifically be a postoperative fluid collection. I discussed these findings with COMPOSITION FLOOR SETTER, and they will determine their next step concerning intervention, observation, etc. Thus, at this point, from a surgical standpoint, I would recommend continued supportive care with the NG tube, nothing by mouth, simethicone products are reasonable, although may not specifically help an ileus per se. She is on Entereg, which is not unreasonable as well, but I do feel the inflammatory process, the operation was a prolonged operation, which could promote this problem. From the standpoint of she has been afebrile and thus the fluid collection that is in the pelvis may be simply postoperative fluid, however, if the COMPOSITION FLOOR SETTER group feels that this may be an abscess, i.e. related to her tachycardia or if her urine output drops off and she develops a fever, percutaneous drainage would specifically be recommended at that time. However, up until that time that is a reasonable option should they so desire. In any case, at this point, will continue being available for surgical issues.
--- NOTE | 2019-06-09 18:49 | RO ---
DATE OF PROCEDURE: 06/05/2019 PREOPERATIVE DIAGNOSES/INDICATION FOR SURGERY: Symptomatic prolapse and large fibroids. PAST MEDICAL AND SURGICAL HISTORY: Also included diabetes and glaucoma, history of breast biopsy, carpal tunnel, gallbladder removal, and tubal ligation. SOCIAL HISTORY: Showed no cigarettes. No drug use. FAMILY HISTORY: Diabetes, heart disease, hypertension and deep venous thrombosis (DVT). ALLERGIES: She had no known drug allergies. MEDICATIONS: Were as listed on previous medications. PHYSICAL EXAM: Significant for an abdominally enlarged palpable uterus, about which the patient was aware, as well as over 5 INCH external projection of bladder and cervix. IMPRESSION AND PREOPERATIVE DIAGNOSES: Symptomatic prolapse, tender fibroid uterus. Plan was for total vaginal hysterectomy, but patient was aware of possible conversion, salpingectomy if able, and then support. POSTOPERATIVE DIAGNOSES: Includes 488 gram uterus with extensive bowel adhesions and bladder adhesions to the uterus and to each other and intraoperative large bowel injury with intraoperative repair and sigmoidoscopy and then change of plan in procedure. PROCEDURE: The procedure was attempted vaginal hysterectomy with bowel injury and conversion to abdominal hysterectomy with cystoscopy and sigmoidoscopy and repair of rectal injury. SURGEON: Dr. Zoe Salinas DIRECTOR OF INTELLIGENCE: Did not have an therapeutic assistant for the main portion of the case but did call a second attending in, Dr. Zhang, the general surgeon, due to the rectal injury, which was repaired by me vaginally but then he did sigmoidoscopy to confirm it was a secure repair, as dictated in the descriptive dictation below. ANESTHESIA: General endotracheal anesthesia. BRIEF DESCRIPTION OF PROCEDURE AND FINDINGS: Lashaun was brought to the operating room where sufficient general endotracheal anesthesia was induced. She was prepped, draped, and positioned in the usual sterile fashion. She did have external prolapse, so the prep was done carefully around that and we were careful to drain the bladder prior to the incision circumferentially around the base of the cervix. The cervix itself was quite attenuated, and cardinal ligaments were isolated, clamped, transected, and ligated using De Palmer clamps, which were used throughout, and #0 Vicryl suture, which were used throughout the uterine portion of the case. Then, we continued to the uterosacrals, which were completely attenuated, and dissected them as well and entered posteriorly. There were layers of peritoneum so that even with the uterosacrals dissected we were undermining the visceral peritoneum posteriorly with the bowel and ureters displaced from the field of dissection with the stiener retractor in place but still working extraperitoneally. It appeared the fibroids had altered the uterine anatomy, but that by undermining the visceral peritoneum and continuing dissection we could further mobilize the uterus. The uterus projected sharply anteriorly, which I believed was from the fibroids. We were able to then carefully clamp, transect, and ligate the uterine vasculature bilaterally until we reached the level of the lower uterine segment, at which point I began shelling out fibroids; but there was a great deal of calcification. I bivalved the cervix to access the fibroids from within the uterine cavity. Even after several fibroids had been delivered and the mass of the uterus had been decreased I could not tip the uterus in order to deliver it as expected. As I was placing traction to evaluate the our progress the right side of the cervix pulled off. There was no significant bleeding going on, and it appeared that we had a reasonable view to mobilize the tissues to free the posterior wall of the uterus above where the cervix had . But then, as I tried to free the posterior wall of the uterus so that I could bring down the uterus posteriorly and try to enter the posterior peritoneum to mobilize the uterus, I entered the colon. I had been trying to gain peritoneal access, but injured the colon with those efforts. With that injury and the difficulty with the dissection that we were having, a decision was made to go up above since we had already been working on the patient for some time and I was definitely concerned about infection in this patient for whom I had not done a bowel prep. We went ahead and made a lower abdominal incision and had no trouble incising the skin, dissecting through the subcutaneous tissues, transecting the rectus fascia, freeing it from the rectus muscles, which were in the midline, and entering the peritoneal cavity. But at this point, there were extensive adhesions of bowel and the bowel was densely adherent to itself, densely adherent to the bladder, densely adherent to the anterior abdominal wall, and densely adherent to the uterus. We went extraperitoneally inferiorly to work down a little bit and backfilled the bladder to make sure we were not interfering with the bladder. Then, carefully using the Metze's, sharply dissected until we could get a window where we could actually see the uterus. We were then able to very carefully grasp the uterus with a single-tooth tenaculum and then carefully sharply incise the bowel to cut it free until we had enough of it freed to have a clear plane. We did also then do some blunt dissection, but only after we had a clear plane with which to work. We then delivered the uterus. It had many, many adhesions on the lower uterine segment and at the level of the internal cervical os so that we could not simply bring up the remaining left portion of the cervix despite having it freed below.I was concerned about the bowel posteriorly so, we went ahead and got below all the fibroids and down to where our dissection had been before and then transected from the top, sewed that over, and went back down below and got the cervix that was still attached on the left side and delivered it from below because I did not want to keep digging down into the pelvis from above. We could not see the bowel injury from above. We did evaluate the bowel where we had carefully dissected down to the uterus. There was no evidence of leakage of bowel contents or bowel or bladder injury. We could not see the course of the ureters because of the adhesion and anatomical distortion by those adhesions. Because of the extent of the adhesions I decided not to dissect down to that level because I felt the risk was greater than the potential benefit. SO after evaluating the bowel and bladder for injury and seeing no bleeding nor fluid nor evidence of further bowel injury we reapproximated the rectus muscles, closed the rectus fascia with a running stitch of 0 vicryl and stapled the skin. Then, working from below, we delivered the remainder of the uterus and then turned our attention to the repair of the colon. We also called in Dr. Zhang, for consultation due to the injury to the bowel. After I had shown him the wound I used #3-0 silk in a two-layered closure to close that wound. (We had closed the abdominal wound above because we really could not see the bowel injury from above with all those adhesions, and I knew that I could see it from below.) While we were setting up for Dr Zhang sigmoidoscope. I did cystourethroscopy. Lashaun had been given preop pyridium to facilitate ureteral evaluation. There was no evidence of bladder injury. On the left her ureter had a strong normal jet. The right ureteral orifice appeared scarred with a smaller than typical opening but after observation we were able to see a jet from the right as well. Then, Dr. Zhang did sigmoidoscopy to evaluate the closure of the bowel injury. The patient had not had a bowel prep so some effort was necessary to get around the stool in the bowel but we were able to see the repair. As he watched and evaluated it, using both air and water to distend the tissues, the cephalad portion of this longitudinal tear of the extraperitoneal bowel split at the angle. There was no puckering nor obstruction of the bowel, but the repair was not watertight in that spot; so we pulled out the scope, and I went ahead and took down the other previous repair and repaired it again. Then we scoped her again, and even under considerable pressure, it was air- and watertight. We placed a Jaun drain in the extraperitoneal space by the repair and then closed the vaginal cuff. Of course, I elected against doing the vaginal repair. She also was given antibiotics in a repeat intraoperative dose as well as planning post op antibiotics. With both wounds closed and a dressing placed abdominally and new Reynoso in place, the procedure was ended. ESTIMATED BLOOD LOSS FOR THE PROCEDURE: About 300 mL. FLUID REPLACEMENT: Was crystalloid: COMPLICATIONS: Yes. The patient had an injury to the colon as already clearly dictated above and had the additional procedure of consultation with Dr. Zhang and sigmoidoscopy and, of course, had the repair of the injury. CONDITION AND DISPOSITION: Despite the protracted procedure, she tolerated it reasonably well and did have a drop in blood pressure with sigmoidoscopy but that seemed to recover and we did do an hemoglobin and hematocrit in the operating room (OR). We did not find any evidence of undetected blood loss, and we attempted not to over fluid replace her as well. The patient was recovering in recovery room in good condition. CHRISTIANO
--- NOTE | 2019-07-03 18:03 | DSES ---
DATE OF ADMISSION: 06/07/2019 DATE OF DISCHARGE: 06/07/2019 ADMITTING DIAGNOSIS: Symptomatic prolapse and fibroids and pain. ADDITIONAL DIAGNOSES: 1. Iatrogenic rectal injury. 2. Postoperative infection. 3. Transfer. PRINCIPAL PROCEDURE: Vaginal hysterectomy with iatrogenic rectal injury, repair of rectal injury and conversion of hysterectomy to abdominal hysterectomy. BRIEF SUMMARY OF PATIENT'S HOSPITAL PRESENTATION/HOSPITAL COURSE: Lashaun presented on 06/05/2019 as a 69-year-old 3, para 3 with symptomatic prolapse, pain and tender fibroids. PAST MEDICAL AND SURGICAL HISTORY: Showed diabetes, glaucoma, a previous breast biopsy, carpal tunnel surgery, cholecystectomy, and tubal ligation. SOCIAL HISTORY: She is a nonsmoker, non-drug user. FAMILY HISTORY: Diabetes, heart disease, hypertension, and previous deep vein thrombosis (DVT). She has no known drug allergies. MEDICATIONS: Included metformin, Combigan, Lumigan, losartan, multivitamins, biotin, vitamin D, calcium Ocuvite, and fish oil. PHYSICAL EXAMINATION: Showed an enlarged fibroid uterus but also a large prolapse which projected 5 inches externally and was quite symptomatic for her. INITIAL IMPRESSION: Symptomatic prolapse, tender fibroid uterus. PLAN: Attempted total vaginal hysterectomy with salpingectomy if able, sacrospinous suspension, anterior and posterior repair, and cystourethroscopy. The patient was aware there was a risk of conversion because of the fibroids but we did have a preoperative evaluation of those and she went to the operating room ([facility]) on 06/05/2019 as is dictated at length in the operative report. An attempt was made to vaginally deliver the fibroids but even with myomectomy down to a size that would usually deliver, the uterus was persistently immobile and as noted in the operative report in our attempts to get around the uterus to mobilize it, I injured the rectum. We made a decision to convert to an open hysterectomy which was undertaken and then we went back down and with of course consultation with general surgery, we closed the rectal injury and she was scoped and we confirmed watertight repair. We did place a drain near that injury. Postoperatively, she initially did reasonably well. We actually allowed some postoperative fluids but she developed some tachycardia and distension and as noted in the operative report, we had considerable intraabdominal adhesions and the decision was made that there was a strong suspicion for developing an abscess and hope to drain that radiologically but we were unable on the weekend to get radiologic drainage and so we consulted with [facility] in order to potentially achieve this option for this patient, and so she was then transferred to [facility] and has records there of the subsequent events.
== END 2019-06-07 20:20 | DRG 742 ==
LOC: M SDC 06:04 → M PED 16:00 → M MS5PR 06-07 12:00 → M SDC 06-07 12:01 → M MS5PR 06-07 12:02 → M SDC 06-07 20:20
PROVIDERS: ADMIT Obstetrics & Gynecology; ATTEND Obstetrics & Gynecology
PROC: 0UTC7ZZ Resection of Cervix, Via Natural or Artificial Opening (ICD-10-PCS; 2019-06-05)
PROC: 0DQP0ZZ Repair Rectum, Open Approach (ICD-10-PCS; 2019-06-05)
PROC: 0DJD8ZZ Inspection of Lower Intestinal Tract, Via Natural or Artificial Opening Endoscopic (ICD-10-PCS; 2019-06-05)
PROC: 0UT90ZZ Resection of Uterus, Open Approach (ICD-10-PCS; principal; 2019-06-05 07:30)
DX: N81.3 Complete uterovaginal prolapse (principal); K91.72 Accidental puncture and laceration of a digestive system organ or structure during other procedure; K56.7 Ileus, unspecified; E11.9 Type 2 diabetes mellitus without complications; D25.9 Leiomyoma of uterus, unspecified; H40.9 Unspecified glaucoma; Z53.31 Laparoscopic surgical procedure converted to open procedure; N73.6 Female pelvic peritoneal adhesions (postinfective); R00.0 Tachycardia, unspecified; I10 Essential (primary) hypertension; Z90.49 Acquired absence of other specified parts of digestive tract; Z79.84 Long term (current) use of oral hypoglycemic drugs; Z79.899 Other long term (current) drug therapy

== ENCOUNTER → 2019-07-02 | Outpatient (REF) | payer MEDICARE ==
[2019-07-02 11:55] LABS: BASO % 0.5 % (0.0-1.0); EOS # 0.2 10^3/uL (0.0-0.5); EOS % 3.6 % (0.0-3.0); HEMATOCRIT 30.9 % (36.0-47.0); HEMOGLOBIN 9.3 g/dl (12.0-15.5); LYMPH # 1.7 10^3/uL (1.5-5.0); LYMPH % 26.3 % (24.0-44.0); MEAN CORPUSCULAR HEMOGLOBIN 30.8 pg (27.0-33.0); MEAN CORPUSCULAR HGB CONC 30.1 g/dl (32.0-36.5); MEAN CORPUSCULAR VOLUME 102.3 fl (80.0-96.0); MONO # 0.5 10^3/uL (0.0-0.8); MONO % 7.1 % (0.0-5.0); NEUTROPHILS % 61.3 % (36.0-66.0); PLATELET COUNT, AUTOMATED 405 10^3/uL (150-450); RED BLOOD COUNT 3.02 10^6/uL (4.00-5.40); WHITE BLOOD COUNT 6.6 10^3/uL (4.0-10.0)
[2019-07-02 12:30] LABS: ALBUMIN 2.8 GM/DL (3.2-5.2); ALT/SGPT 11 U/L (12-78); BILIRUBIN,TOTAL 0.3 MG/DL (0.2-1.0); BLOOD UREA NITROGEN 19 MG/DL (7-18); CALCIUM LEVEL 9.2 MG/DL (8.8-10.2); CARBON DIOXIDE LEVEL 28 MEQ/L (21-32); CHLORIDE LEVEL 103 MEQ/L (98-107); GLOMERULAR FILTRATION RATE > 60.0 (>39); GLUCOSE, FASTING 189 MG/DL (70-100); POTASSIUM SERUM 4.1 MEQ/L (3.5-5.1); SODIUM LEVEL 139 MEQ/L (136-145); TOTAL PROTEIN 6.8 GM/DL (6.4-8.2)
== END ==
LOC: M LABDRAW1 11:42
PROVIDERS: ATTEND Family Medicine
DX: D64.9 Anemia, unspecified (principal)

== ENCOUNTER → 2019-07-30 | Outpatient (CLI) | payer MEDICARE ==
[2019-07-30 08:26] LABS: BASO % 0.5 % (0.0-1.0); EOS # 0.2 10^3/uL (0.0-0.5); EOS % 2.1 % (0.0-3.0); HEMATOCRIT 37.8 % (36.0-47.0); HEMOGLOBIN 11.9 g/dl (12.0-15.5); LYMPH # 1.8 10^3/uL (1.5-5.0); LYMPH % 21.7 % (24.0-44.0); MEAN CORPUSCULAR HEMOGLOBIN 30.1 pg (27.0-33.0); MEAN CORPUSCULAR HGB CONC 31.5 g/dl (32.0-36.5); MEAN CORPUSCULAR VOLUME 95.5 fl (80.0-96.0); MONO # 0.4 10^3/uL (0.0-0.8); MONO % 5.2 % (0.0-5.0); NEUTROPHILS # 5.6 10^3/uL (1.5-8.5); NEUTROPHILS % 69.9 % (36.0-66.0); PLATELET COUNT, AUTOMATED 321 10^3/uL (150-450); RED BLOOD COUNT 3.96 10^6/uL (4.00-5.40); WHITE BLOOD COUNT 8.1 10^3/uL (4.0-10.0)
[2019-07-30 08:58] LABS: ALBUMIN 3.4 GM/DL (3.2-5.2); ALT/SGPT 17 U/L (12-78); BILIRUBIN,TOTAL 0.4 MG/DL (0.2-1.0); BLOOD UREA NITROGEN 18 MG/DL (7-18); CALCIUM LEVEL 9.6 MG/DL (8.8-10.2); CARBON DIOXIDE LEVEL 29 MEQ/L (21-32); CHLORIDE LEVEL 107 MEQ/L (98-107); CREATININE FOR GFR 0.61 MG/DL (0.55-1.30); GLOMERULAR FILTRATION RATE > 60.0 (>39); GLUCOSE, FASTING 190 MG/DL (70-100); MAGNESIUM LEVEL 1.9 MG/DL (1.8-2.4); POTASSIUM SERUM 4.5 MEQ/L (3.5-5.1); SODIUM LEVEL 140 MEQ/L (136-145); TOTAL PROTEIN 7.8 GM/DL (6.4-8.2)
[2019-08-01 11:04] LABS: CA 125 6.6 U/ML (<30.2)
== END ==
LOC: M LAB 08:00
PROVIDERS: ATTEND Nurse Practitioner
DX: C56.9 Malignant neoplasm of unspecified ovary (principal); Z79.899 Other long term (current) drug therapy

== ENCOUNTER → 2019-08-06 | Outpatient (CLI) | payer MEDICARE ==
[2019-08-06 08:39] LABS: BASO % 0.5 % (0.0-1.0); EOS # 0.1 10^3/uL (0.0-0.5); EOS % 1.8 % (0.0-3.0); HEMATOCRIT 36.1 % (36.0-47.0); HEMOGLOBIN 11.6 g/dl (12.0-15.5); LYMPH # 1.4 10^3/uL (1.5-5.0); LYMPH % 25.1 % (24.0-44.0); MEAN CORPUSCULAR HEMOGLOBIN 30.6 pg (27.0-33.0); MEAN CORPUSCULAR HGB CONC 32.1 g/dl (32.0-36.5); MEAN CORPUSCULAR VOLUME 95.3 fl (80.0-96.0); MONO # 0.3 10^3/uL (0.0-0.8); MONO % 4.7 % (0.0-5.0); NEUTROPHILS # 3.8 10^3/uL (1.5-8.5); NEUTROPHILS % 67.5 % (36.0-66.0); PLATELET COUNT, AUTOMATED 303 10^3/uL (150-450); RED BLOOD COUNT 3.79 10^6/uL (4.00-5.40); WHITE BLOOD COUNT 5.6 10^3/uL (4.0-10.0)
[2019-08-06 08:58] LABS: ALBUMIN 3.3 GM/DL (3.2-5.2); ALT/SGPT 18 U/L (12-78); BILIRUBIN,TOTAL 0.3 MG/DL (0.2-1.0); BLOOD UREA NITROGEN 17 MG/DL (7-18); CALCIUM LEVEL 9.7 MG/DL (8.8-10.2); CARBON DIOXIDE LEVEL 31 MEQ/L (21-32); CHLORIDE LEVEL 105 MEQ/L (98-107); CREATININE FOR GFR 0.56 MG/DL (0.55-1.30); GLOMERULAR FILTRATION RATE > 60.0 (>39); GLUCOSE, FASTING 179 MG/DL (70-100); MAGNESIUM LEVEL 1.8 MG/DL (1.8-2.4); POTASSIUM SERUM 4.4 MEQ/L (3.5-5.1); SODIUM LEVEL 140 MEQ/L (136-145); TOTAL PROTEIN 7.1 GM/DL (6.4-8.2)
== END ==
LOC: M LAB 07:57
PROVIDERS: ATTEND Nurse Practitioner
DX: C56.9 Malignant neoplasm of unspecified ovary (principal); Z79.899 Other long term (current) drug therapy

== ENCOUNTER → 2019-08-13 | Outpatient (CLI) | payer MEDICARE ==
[2019-08-13 08:11] LABS: BASO % 0.4 % (0.0-1.0); EOS # 0.1 10^3/uL (0.0-0.5); EOS % 1.5 % (0.0-3.0); HEMATOCRIT 38.7 % (36.0-47.0); HEMOGLOBIN 12.1 g/dl (12.0-15.5); LYMPH # 1.3 10^3/uL (1.5-5.0); LYMPH % 26.8 % (24.0-44.0); MEAN CORPUSCULAR HEMOGLOBIN 29.3 pg (27.0-33.0); MEAN CORPUSCULAR HGB CONC 31.3 g/dl (32.0-36.5); MEAN CORPUSCULAR VOLUME 93.7 fl (80.0-96.0); MONO # 0.3 10^3/uL (0.0-0.8); MONO % 5.5 % (0.0-5.0); NEUTROPHILS # 3.1 10^3/uL (1.5-8.5); NEUTROPHILS % 65.4 % (36.0-66.0); PLATELET COUNT, AUTOMATED 321 10^3/uL (150-450); RED BLOOD COUNT 4.13 10^6/uL (4.00-5.40); WHITE BLOOD COUNT 4.7 10^3/uL (4.0-10.0)
[2019-08-13 08:34] LABS: ALBUMIN 3.5 GM/DL (3.2-5.2); ALT/SGPT 16 U/L (12-78); BILIRUBIN,TOTAL 0.3 MG/DL (0.2-1.0); BLOOD UREA NITROGEN 19 MG/DL (7-18); CALCIUM LEVEL 9.8 MG/DL (8.8-10.2); CARBON DIOXIDE LEVEL 31 MEQ/L (21-32); CHLORIDE LEVEL 105 MEQ/L (98-107); CREATININE FOR GFR 0.55 MG/DL (0.55-1.30); GLOMERULAR FILTRATION RATE > 60.0 (>39); GLUCOSE, FASTING 133 MG/DL (70-100); MAGNESIUM LEVEL 1.8 MG/DL (1.8-2.4); POTASSIUM SERUM 4.7 MEQ/L (3.5-5.1); SODIUM LEVEL 139 MEQ/L (136-145); TOTAL PROTEIN 7.2 GM/DL (6.4-8.2)
== END ==
LOC: M LAB 07:18
PROVIDERS: ATTEND Nurse Practitioner
DX: C56.9 Malignant neoplasm of unspecified ovary (principal); Z79.899 Other long term (current) drug therapy

== ENCOUNTER → 2019-08-20 | Outpatient (CLI) | payer MEDICARE ==
[2019-08-20 09:28] LABS: BASO % 0.7 % (0.0-1.0); EOS % 0.3 % (0.0-3.0); HEMATOCRIT 37.4 % (36.0-47.0); HEMOGLOBIN 11.8 g/dl (12.0-15.5); LYMPH # 1.6 10^3/uL (1.5-5.0); LYMPH % 26.5 % (24.0-44.0); MEAN CORPUSCULAR HEMOGLOBIN 29.5 pg (27.0-33.0); MEAN CORPUSCULAR HGB CONC 31.6 g/dl (32.0-36.5); MEAN CORPUSCULAR VOLUME 93.5 fl (80.0-96.0); MONO # 0.3 10^3/uL (0.0-0.8); MONO % 5.4 % (0.0-5.0); NEUTROPHILS % 66.4 % (36.0-66.0); PLATELET COUNT, AUTOMATED 333 10^3/uL (150-450)
[2019-08-20 09:53] LABS: ALBUMIN 3.3 GM/DL (3.2-5.2); ALT/SGPT 20 U/L (12-78); BILIRUBIN,TOTAL 0.2 MG/DL (0.2-1.0); BLOOD UREA NITROGEN 23 MG/DL (7-18); CALCIUM LEVEL 9.7 MG/DL (8.8-10.2); CARBON DIOXIDE LEVEL 30 MEQ/L (21-32); CHLORIDE LEVEL 105 MEQ/L (98-107); CREATININE FOR GFR 0.58 MG/DL (0.55-1.30); GLOMERULAR FILTRATION RATE > 60.0 (>39); GLUCOSE, FASTING 186 MG/DL (70-100); MAGNESIUM LEVEL 1.7 MG/DL (1.8-2.4); POTASSIUM SERUM 4.8 MEQ/L (3.5-5.1); SODIUM LEVEL 138 MEQ/L (136-145)
[2019-08-22 10:39] LABS: CA 125 4.3 U/ML (<30.2)
== END ==
LOC: M LAB 07:59
PROVIDERS: ATTEND Nurse Practitioner
DX: C56.9 Malignant neoplasm of unspecified ovary (principal); Z79.899 Other long term (current) drug therapy

== ENCOUNTER → 2019-08-27 | Outpatient (CLI) | payer MEDICARE ==
[2019-08-27 08:07] LABS: BASO # 0.1 10^3/uL (0.0-0.2); EOS % 0.4 % (0.0-3.0); HEMATOCRIT 36.8 % (36.0-47.0); HEMOGLOBIN 11.8 g/dl (12.0-15.5); LYMPH # 1.5 10^3/uL (1.5-5.0); LYMPH % 29.6 % (24.0-44.0); MEAN CORPUSCULAR HEMOGLOBIN 29.5 pg (27.0-33.0); MEAN CORPUSCULAR HGB CONC 32.1 g/dl (32.0-36.5); MONO # 0.3 10^3/uL (0.0-0.8); MONO % 5.2 % (0.0-5.0); NEUTROPHILS # 3.3 10^3/uL (1.5-8.5); PLATELET COUNT, AUTOMATED 254 10^3/uL (150-450); WHITE BLOOD COUNT 5.2 10^3/uL (4.0-10.0)
[2019-08-27 08:43] LABS: ALBUMIN 3.5 GM/DL (3.2-5.2); ALT/SGPT 19 U/L (12-78); BILIRUBIN,TOTAL 0.4 MG/DL (0.2-1.0); BLOOD UREA NITROGEN 22 MG/DL (7-18); CALCIUM LEVEL 9.8 MG/DL (8.8-10.2); CARBON DIOXIDE LEVEL 30 MEQ/L (21-32); CHLORIDE LEVEL 105 MEQ/L (98-107); CREATININE FOR GFR 0.64 MG/DL (0.55-1.30); GLOMERULAR FILTRATION RATE > 60.0 (>39); GLUCOSE, FASTING 224 MG/DL (70-100); MAGNESIUM LEVEL 1.7 MG/DL (1.8-2.4); SODIUM LEVEL 139 MEQ/L (136-145); TOTAL PROTEIN 7.1 GM/DL (6.4-8.2)
== END ==
LOC: M LAB 07:36
PROVIDERS: ATTEND Nurse Practitioner
DX: C56.9 Malignant neoplasm of unspecified ovary (principal); Z79.899 Other long term (current) drug therapy

== ENCOUNTER → 2019-09-03 | Outpatient (CLI) | payer MEDICARE ==
[2019-09-03 08:06] LABS: BASO % 0.7 % (0.0-1.0); EOS % 0.2 % (0.0-3.0); HEMATOCRIT 35.6 % (36.0-47.0); HEMOGLOBIN 11.7 g/dl (12.0-15.5); LYMPH # 1.5 10^3/uL (1.5-5.0); LYMPH % 24.7 % (24.0-44.0); MEAN CORPUSCULAR HEMOGLOBIN 29.8 pg (27.0-33.0); MEAN CORPUSCULAR HGB CONC 32.9 g/dl (32.0-36.5); MEAN CORPUSCULAR VOLUME 90.6 fl (80.0-96.0); MONO # 0.3 10^3/uL (0.0-0.8); MONO % 4.9 % (0.0-5.0); NEUTROPHILS # 4.2 10^3/uL (1.5-8.5); NEUTROPHILS % 68.7 % (36.0-66.0); PLATELET COUNT, AUTOMATED 161 10^3/uL (150-450); RED BLOOD COUNT 3.93 10^6/uL (4.00-5.40); WHITE BLOOD COUNT 6.1 10^3/uL (4.0-10.0)
[2019-09-03 08:27] LABS: ALBUMIN 3.4 GM/DL (3.2-5.2); ALT/SGPT 20 U/L (12-78); BILIRUBIN,TOTAL 0.4 MG/DL (0.2-1.0); BLOOD UREA NITROGEN 19 MG/DL (7-18); CALCIUM LEVEL 9.4 MG/DL (8.8-10.2); CARBON DIOXIDE LEVEL 30 MEQ/L (21-32); CHLORIDE LEVEL 106 MEQ/L (98-107); CREATININE FOR GFR 0.53 MG/DL (0.55-1.30); GLOMERULAR FILTRATION RATE > 60.0 (>39); GLUCOSE, FASTING 204 MG/DL (70-100); MAGNESIUM LEVEL 1.7 MG/DL (1.8-2.4); POTASSIUM SERUM 4.1 MEQ/L (3.5-5.1); SODIUM LEVEL 139 MEQ/L (136-145); TOTAL PROTEIN 7.1 GM/DL (6.4-8.2)
== END ==
LOC: M LAB 07:32
PROVIDERS: ATTEND Nurse Practitioner
DX: C56.9 Malignant neoplasm of unspecified ovary (principal); Z79.899 Other long term (current) drug therapy

== ENCOUNTER → 2019-09-09 | Outpatient (CLI) | payer MEDICARE ==
[2019-09-09 08:06] LABS: BASO % 0.5 % (0.0-1.0); EOS % 0.5 % (0.0-3.0); HEMATOCRIT 36.4 % (36.0-47.0); HEMOGLOBIN 11.7 g/dl (12.0-15.5); LYMPH # 1.3 10^3/uL (1.5-5.0); LYMPH % 32.1 % (24.0-44.0); MEAN CORPUSCULAR HEMOGLOBIN 29.8 pg (27.0-33.0); MEAN CORPUSCULAR HGB CONC 32.1 g/dl (32.0-36.5); MEAN CORPUSCULAR VOLUME 92.6 fl (80.0-96.0); MONO # 0.1 10^3/uL (0.0-0.8); MONO % 3.2 % (0.0-5.0); NEUTROPHILS # 2.6 10^3/uL (1.5-8.5); NEUTROPHILS % 63.5 % (36.0-66.0); PLATELET COUNT, AUTOMATED 107 10^3/uL (150-450); RED BLOOD COUNT 3.93 10^6/uL (4.00-5.40); WHITE BLOOD COUNT 4.1 10^3/uL (4.0-10.0)
[2019-09-09 08:33] LABS: ALBUMIN 3.4 GM/DL (3.2-5.2); ALT/SGPT 23 U/L (12-78); BILIRUBIN,TOTAL 0.4 MG/DL (0.2-1.0); BLOOD UREA NITROGEN 20 MG/DL (7-18); CALCIUM LEVEL 9.1 MG/DL (8.8-10.2); CARBON DIOXIDE LEVEL 30 MEQ/L (21-32); CHLORIDE LEVEL 107 MEQ/L (98-107); CREATININE FOR GFR 0.56 MG/DL (0.55-1.30); GLOMERULAR FILTRATION RATE > 60.0 (>39); GLUCOSE, FASTING 196 MG/DL (70-100); MAGNESIUM LEVEL 1.7 MG/DL (1.8-2.4); POTASSIUM SERUM 4.3 MEQ/L (3.5-5.1); SODIUM LEVEL 141 MEQ/L (136-145); TOTAL PROTEIN 6.8 GM/DL (6.4-8.2)
[2019-09-09 10:52] LABS: CA 125 4.1 U/ML (<30.2)
== END ==
LOC: M LAB 07:39
PROVIDERS: ATTEND Nurse Practitioner
DX: C56.9 Malignant neoplasm of unspecified ovary (principal); Z79.899 Other long term (current) drug therapy

== ENCOUNTER → 2019-09-17 | Outpatient (CLI) | payer MEDICARE ==
[2019-09-17 07:45] LABS: HEMATOCRIT 34.6 % (36.0-47.0); HEMOGLOBIN 11.2 g/dl (12.0-15.5); MEAN CORPUSCULAR HEMOGLOBIN 30.2 pg (27.0-33.0); MEAN CORPUSCULAR HGB CONC 32.4 g/dl (32.0-36.5); MEAN CORPUSCULAR VOLUME 93.3 fl (80.0-96.0); PLATELET COUNT, AUTOMATED 175 10^3/uL (150-450); RED BLOOD COUNT 3.71 10^6/uL (4.00-5.40); WHITE BLOOD COUNT 4.7 10^3/uL (4.0-10.0)
[2019-09-17 08:09] LABS: ALBUMIN 3.5 GM/DL (3.2-5.2); ALT/SGPT 21 U/L (12-78); BILIRUBIN,TOTAL 0.5 MG/DL (0.2-1.0); BLOOD UREA NITROGEN 23 MG/DL (7-18); CALCIUM LEVEL 8.9 MG/DL (8.8-10.2); CARBON DIOXIDE LEVEL 28 MEQ/L (21-32); CHLORIDE LEVEL 107 MEQ/L (98-107); CREATININE FOR GFR 0.48 MG/DL (0.55-1.30); GLOMERULAR FILTRATION RATE > 60.0 (>39); GLUCOSE, FASTING 159 MG/DL (70-100); MAGNESIUM LEVEL 1.7 MG/DL (1.8-2.4); POTASSIUM SERUM 3.9 MEQ/L (3.5-5.1); SODIUM LEVEL 140 MEQ/L (136-145); TOTAL PROTEIN 6.7 GM/DL (6.4-8.2)
[2019-09-17 11:37] LABS: BASO % 0.6 % (0.0-1.0); EOS % 0.4 % (0.0-3.0); LYMPH # 1.6 10^3/uL (1.5-5.0); LYMPH % 33.9 % (24.0-44.0); MONO # 0.2 10^3/uL (0.0-0.8); MONO % 4.5 % (0.0-5.0); NEUTROPHILS # 2.8 10^3/uL (1.5-8.5); NEUTROPHILS % 60.2 % (36.0-66.0)
== END ==
LOC: M LAB 07:14
PROVIDERS: ATTEND Nurse Practitioner
DX: C56.9 Malignant neoplasm of unspecified ovary (principal); Z79.899 Other long term (current) drug therapy

== ENCOUNTER → 2019-09-24 | Outpatient (CLI) | payer MEDICARE ==
[2019-09-24 07:49] LABS: BASO % 0.8 % (0.0-1.0); EOS % 0.8 % (0.0-3.0); HEMOGLOBIN 11.3 g/dl (12.0-15.5); LYMPH % 37.4 % (24.0-44.0); MEAN CORPUSCULAR HEMOGLOBIN 30.5 pg (27.0-33.0); MEAN CORPUSCULAR HGB CONC 32.3 g/dl (32.0-36.5); MEAN CORPUSCULAR VOLUME 94.3 fl (80.0-96.0); MONO # 0.2 10^3/uL (0.0-0.8); MONO % 7.5 % (0.0-5.0); NEUTROPHILS # 1.4 10^3/uL (1.5-8.5); NEUTROPHILS % 52.4 % (36.0-66.0); PLATELET COUNT, AUTOMATED 243 10^3/uL (150-450); RED BLOOD COUNT 3.71 10^6/uL (4.00-5.40); WHITE BLOOD COUNT 2.7 10^3/uL (4.0-10.0)
[2019-09-24 08:13] LABS: ALBUMIN 3.4 GM/DL (3.2-5.2); ALT/SGPT 19 U/L (12-78); BILIRUBIN,TOTAL 0.4 MG/DL (0.2-1.0); BLOOD UREA NITROGEN 23 MG/DL (7-18); CALCIUM LEVEL 9.4 MG/DL (8.8-10.2); CARBON DIOXIDE LEVEL 30 MEQ/L (21-32); CHLORIDE LEVEL 105 MEQ/L (98-107); CREATININE FOR GFR 0.63 MG/DL (0.55-1.30); GLOMERULAR FILTRATION RATE > 60.0 (>39); GLUCOSE, FASTING 252 MG/DL (70-100); MAGNESIUM LEVEL 1.9 MG/DL (1.8-2.4); POTASSIUM SERUM 4.2 MEQ/L (3.5-5.1); SODIUM LEVEL 140 MEQ/L (136-145); TOTAL PROTEIN 6.7 GM/DL (6.4-8.2)
== END ==
LOC: M LAB 07:20
PROVIDERS: ATTEND Nurse Practitioner
DX: C56.9 Malignant neoplasm of unspecified ovary (principal); Z79.899 Other long term (current) drug therapy

== ENCOUNTER → 2019-10-03 | Outpatient (CLI) | payer MEDICARE ==
[2019-10-03 07:38] LABS: BASO % 0.8 % (0.0-1.0); EOS % 0.2 % (0.0-3.0); HEMATOCRIT 33.8 % (36.0-47.0); HEMOGLOBIN 11.2 g/dl (12.0-15.5); LYMPH # 1.9 10^3/uL (1.5-5.0); LYMPH % 39.1 % (24.0-44.0); MEAN CORPUSCULAR HEMOGLOBIN 30.8 pg (27.0-33.0); MEAN CORPUSCULAR HGB CONC 33.1 g/dl (32.0-36.5); MEAN CORPUSCULAR VOLUME 92.9 fl (80.0-96.0); MONO # 0.5 10^3/uL (0.0-0.8); MONO % 11.1 % (0.0-5.0); NEUTROPHILS # 2.1 10^3/uL (1.5-8.5); NEUTROPHILS % 44.2 % (36.0-66.0); PLATELET COUNT, AUTOMATED 228 10^3/uL (150-450); RED BLOOD COUNT 3.64 10^6/uL (4.00-5.40); WHITE BLOOD COUNT 4.8 10^3/uL (4.0-10.0)
== END ==
LOC: M LAB 07:12
PROVIDERS: ATTEND Nurse Practitioner
DX: C56.9 Malignant neoplasm of unspecified ovary (principal); Z79.899 Other long term (current) drug therapy

== ENCOUNTER → 2019-10-10 | Outpatient (CLI) | payer MEDICARE ==
[2019-10-10 07:29] LABS: BASO # 0.1 10^3/uL (0.0-0.2); BASO % 0.9 % (0.0-1.0); EOS % 0.4 % (0.0-3.0); HEMOGLOBIN 11.6 g/dl (12.0-15.5); LYMPH # 1.8 10^3/uL (1.5-5.0); LYMPH % 31.8 % (24.0-44.0); MEAN CORPUSCULAR HEMOGLOBIN 31.4 pg (27.0-33.0); MEAN CORPUSCULAR HGB CONC 33.1 g/dl (32.0-36.5); MEAN CORPUSCULAR VOLUME 94.6 fl (80.0-96.0); MONO # 0.7 10^3/uL (0.0-0.8); MONO % 11.5 % (0.0-5.0); NEUTROPHILS % 53.8 % (36.0-66.0); PLATELET COUNT, AUTOMATED 197 10^3/uL (150-450); WHITE BLOOD COUNT 5.6 10^3/uL (4.0-10.0)
[2019-10-10 07:51] LABS: ALBUMIN 3.4 GM/DL (3.2-5.2); ALT/SGPT 22 U/L (12-78); BILIRUBIN,TOTAL 0.3 MG/DL (0.2-1.0); BLOOD UREA NITROGEN 20 MG/DL (7-18); CALCIUM LEVEL 9.3 MG/DL (8.8-10.2); CARBON DIOXIDE LEVEL 25 MEQ/L (21-32); CHLORIDE LEVEL 110 MEQ/L (98-107); GLOMERULAR FILTRATION RATE > 60.0 (>39); GLUCOSE, FASTING 150 MG/DL (70-100); MAGNESIUM LEVEL 1.8 MG/DL (1.8-2.4); POTASSIUM SERUM 3.9 MEQ/L (3.5-5.1); SODIUM LEVEL 142 MEQ/L (136-145)
[2019-10-10 10:15] LABS: CA 125 4.1 U/ML (<30.2)
== END ==
LOC: M LAB 07:00
PROVIDERS: ATTEND Nurse Practitioner
DX: C56.9 Malignant neoplasm of unspecified ovary (principal); Z79.899 Other long term (current) drug therapy

== ENCOUNTER → 2019-10-17 | Outpatient (CLI) | payer MEDICARE ==
[2019-10-17 07:53] LABS: BASO # 0.1 10^3/uL (0.0-0.2); BASO % 0.8 % (0.0-1.0); EOS # 0.1 10^3/uL (0.0-0.5); EOS % 1.2 % (0.0-3.0); HEMATOCRIT 37.4 % (36.0-47.0); MEAN CORPUSCULAR HEMOGLOBIN 30.8 pg (27.0-33.0); MEAN CORPUSCULAR HGB CONC 32.1 g/dl (32.0-36.5); MEAN CORPUSCULAR VOLUME 95.9 fl (80.0-96.0); MONO # 0.6 10^3/uL (0.0-0.8); MONO % 9.1 % (0.0-5.0); NEUTROPHILS # 3.7 10^3/uL (1.5-8.5); NEUTROPHILS % 56.1 % (36.0-66.0); PLATELET COUNT, AUTOMATED 159 10^3/uL (150-450); WHITE BLOOD COUNT 6.5 10^3/uL (4.0-10.0)
== END ==
LOC: M LAB 07:02
PROVIDERS: ATTEND Nurse Practitioner
DX: C56.9 Malignant neoplasm of unspecified ovary (principal); Z79.899 Other long term (current) drug therapy

== ENCOUNTER → 2019-10-23 | Outpatient (CLI) | payer MEDICARE ==
[2019-10-23 08:06] LABS: BASO # 0.1 10^3/uL (0.0-0.2); BASO % 0.8 % (0.0-1.0); EOS # 0.2 10^3/uL (0.0-0.5); EOS % 2.1 % (0.0-3.0); HEMATOCRIT 36.3 % (36.0-47.0); HEMOGLOBIN 12.1 g/dl (12.0-15.5); LYMPH % 25.4 % (24.0-44.0); MEAN CORPUSCULAR HEMOGLOBIN 31.9 pg (27.0-33.0); MEAN CORPUSCULAR HGB CONC 33.3 g/dl (32.0-36.5); MEAN CORPUSCULAR VOLUME 95.8 fl (80.0-96.0); MONO # 0.6 10^3/uL (0.0-0.8); NEUTROPHILS # 4.9 10^3/uL (1.5-8.5); NEUTROPHILS % 62.8 % (36.0-66.0); PLATELET COUNT, AUTOMATED 158 10^3/uL (150-450); RED BLOOD COUNT 3.79 10^6/uL (4.00-5.40); WHITE BLOOD COUNT 7.8 10^3/uL (4.0-10.0)
[2019-10-23 08:12] LABS: ALBUMIN 3.5 GM/DL (3.2-5.2); ALT/SGPT 23 U/L (12-78); BILIRUBIN,TOTAL 0.5 MG/DL (0.2-1.0); BLOOD UREA NITROGEN 19 MG/DL (7-18); CARBON DIOXIDE LEVEL 27 MEQ/L (21-32); CHLORIDE LEVEL 104 MEQ/L (98-107); CREATININE FOR GFR 0.71 MG/DL (0.55-1.30); GLOMERULAR FILTRATION RATE > 60.0 (>39); GLUCOSE, FASTING 258 MG/DL (70-100); MAGNESIUM LEVEL 1.8 MG/DL (1.8-2.4); POTASSIUM SERUM 4.2 MEQ/L (3.5-5.1); SODIUM LEVEL 140 MEQ/L (136-145); TOTAL PROTEIN 6.8 GM/DL (6.4-8.2)
[2019-10-24 17:46] LABS: CA 125 5.3 U/ML (<30.2)
== END ==
LOC: M LAB 07:22
PROVIDERS: ATTEND Nurse Practitioner
DX: C56.9 Malignant neoplasm of unspecified ovary (principal); Z79.899 Other long term (current) drug therapy

== ENCOUNTER → 2019-12-03 | Outpatient (REF) | payer MEDICARE ==
[2019-12-03 10:30] LABS: BASO % 0.5 % (0.0-1.0); EOS # 0.1 10^3/uL (0.0-0.5); EOS % 1.7 % (0.0-3.0); HEMATOCRIT 26.3 % (36.0-47.0); HEMOGLOBIN 8.7 g/dl (12.0-15.5); LYMPH # 1.3 10^3/uL (1.5-5.0); LYMPH % 19.2 % (24.0-44.0); MEAN CORPUSCULAR HEMOGLOBIN 33.2 pg (27.0-33.0); MEAN CORPUSCULAR HGB CONC 33.1 g/dl (32.0-36.5); MEAN CORPUSCULAR VOLUME 100.4 fl (80.0-96.0); MONO # 0.5 10^3/uL (0.0-0.8); MONO % 7.4 % (0.0-5.0); NEUTROPHILS # 4.6 10^3/uL (1.5-8.5); NEUTROPHILS % 68.8 % (36.0-66.0); PLATELET COUNT, AUTOMATED 280 10^3/uL (150-450); RED BLOOD COUNT 2.62 10^6/uL (4.00-5.40); WHITE BLOOD COUNT 6.7 10^3/uL (4.0-10.0)
[2019-12-03 10:49] LABS: ALBUMIN 2.7 GM/DL (3.2-5.2); ALT/SGPT 19 U/L (12-78); BILIRUBIN,TOTAL 0.4 MG/DL (0.2-1.0); BLOOD UREA NITROGEN 14 MG/DL (7-18); CALCIUM LEVEL 9.1 MG/DL (8.8-10.2); CARBON DIOXIDE LEVEL 29 MEQ/L (21-32); CHLORIDE LEVEL 106 MEQ/L (98-107); CREATININE FOR GFR 0.38 MG/DL (0.55-1.30); GLOMERULAR FILTRATION RATE > 60.0 (>39); GLUCOSE, FASTING 150 MG/DL (70-100); POTASSIUM SERUM 3.9 MEQ/L (3.5-5.1); SODIUM LEVEL 141 MEQ/L (136-145)
[2019-12-03 11:15] LABS: HEMOGLOBIN A1c 5.6 %
== END ==
LOC: M LABDRAW1 09:47
PROVIDERS: ATTEND Family Medicine
DX: E11.69 Type 2 diabetes mellitus with other specified complication (principal)

== ENCOUNTER → 2019-12-24 | Outpatient (CLI) | payer MEDICARE ==
[2019-12-24 07:23] LABS: HEMATOCRIT 35.1 % (36.0-47.0); HEMOGLOBIN 11.1 g/dl (12.0-15.5); MEAN CORPUSCULAR HEMOGLOBIN 31.3 pg (27.0-33.0); MEAN CORPUSCULAR HGB CONC 31.6 g/dl (32.0-36.5); MEAN CORPUSCULAR VOLUME 98.9 fl (80.0-96.0); NEUTROPHILS % 55.3 % (36.0-66.0); PLATELET COUNT, AUTOMATED 268 10^3/uL (150-450); RED BLOOD COUNT 3.55 10^6/uL (4.00-5.40); WHITE BLOOD COUNT 5.8 10^3/uL (4.0-10.0)
[2019-12-24 07:24] LABS: BASO % 0.5 % (0.0-1.0); EOS # 0.1 10^3/uL (0.0-0.5); EOS % 2.2 % (0.0-3.0); LYMPH # 1.9 10^3/uL (1.5-5.0); LYMPH % 32.2 % (24.0-44.0); MONO # 0.5 10^3/uL (0.0-0.8); MONO % 8.8 % (0.0-5.0); NEUTROPHILS # 3.2 10^3/uL (1.5-8.5)
[2019-12-24 07:49] LABS: ALBUMIN 3.5 GM/DL (3.2-5.2); ALT/SGPT 17 U/L (12-78); BILIRUBIN,TOTAL 0.3 MG/DL (0.2-1.0); BLOOD UREA NITROGEN 19 MG/DL (7-18); CALCIUM LEVEL 9.7 MG/DL (8.8-10.2); CARBON DIOXIDE LEVEL 29 MEQ/L (21-32); CHLORIDE LEVEL 103 MEQ/L (98-107); CREATININE FOR GFR 0.64 MG/DL (0.55-1.30); GLOMERULAR FILTRATION RATE > 60.0 (>39); GLUCOSE, FASTING 130 MG/DL (70-100); MAGNESIUM LEVEL 2.1 MG/DL (1.8-2.4); POTASSIUM SERUM 4.1 MEQ/L (3.5-5.1); SODIUM LEVEL 139 MEQ/L (136-145); TOTAL PROTEIN 7.6 GM/DL (6.4-8.2)
[2019-12-26 08:17] LABS: CA 125 5.1 U/ML (<30.2)
== END ==
LOC: M LAB 06:56
PROVIDERS: ATTEND Nurse Practitioner
DX: C56.9 Malignant neoplasm of unspecified ovary (principal); Z79.899 Other long term (current) drug therapy

== ENCOUNTER → 2019-12-31 | Outpatient (CLI) | payer MEDICARE ==
[2019-12-31 07:31] LABS: BASO % 0.6 % (0.0-1.0); EOS # 0.1 10^3/uL (0.0-0.5); EOS % 2.5 % (0.0-3.0); HEMATOCRIT 34.5 % (36.0-47.0); HEMOGLOBIN 11.3 g/dl (12.0-15.5); LYMPH # 1.5 10^3/uL (1.5-5.0); LYMPH % 28.4 % (24.0-44.0); MEAN CORPUSCULAR HEMOGLOBIN 31.8 pg (27.0-33.0); MEAN CORPUSCULAR HGB CONC 32.8 g/dl (32.0-36.5); MEAN CORPUSCULAR VOLUME 97.2 fl (80.0-96.0); MONO # 0.2 10^3/uL (0.0-0.8); NEUTROPHILS # 3.4 10^3/uL (1.5-8.5); NEUTROPHILS % 64.1 % (36.0-66.0); PLATELET COUNT, AUTOMATED 218 10^3/uL (150-450); RED BLOOD COUNT 3.55 10^6/uL (4.00-5.40); WHITE BLOOD COUNT 5.2 10^3/uL (4.0-10.0)
[2019-12-31 08:01] LABS: ALBUMIN 3.5 GM/DL (3.2-5.2); ALT/SGPT 18 U/L (12-78); BILIRUBIN,TOTAL 0.3 MG/DL (0.2-1.0); BLOOD UREA NITROGEN 23 MG/DL (7-18); CALCIUM LEVEL 9.5 MG/DL (8.8-10.2); CARBON DIOXIDE LEVEL 29 MEQ/L (21-32); CHLORIDE LEVEL 105 MEQ/L (98-107); CREATININE FOR GFR 0.55 MG/DL (0.55-1.30); GLOMERULAR FILTRATION RATE > 60.0 (>39); GLUCOSE, FASTING 149 MG/DL (70-100); MAGNESIUM LEVEL 1.9 MG/DL (1.8-2.4); POTASSIUM SERUM 4.4 MEQ/L (3.5-5.1); SODIUM LEVEL 139 MEQ/L (136-145); TOTAL PROTEIN 7.1 GM/DL (6.4-8.2)
== END ==
LOC: M LAB 07:01
PROVIDERS: ATTEND Nurse Practitioner
DX: C56.9 Malignant neoplasm of unspecified ovary (principal); Z79.899 Other long term (current) drug therapy

== ENCOUNTER → 2020-01-07 | Outpatient (CLI) | payer MEDICARE ==
[2020-01-07 07:51] LABS: BASO % 0.8 % (0.0-1.0); EOS # 0.1 10^3/uL (0.0-0.5); EOS % 1.3 % (0.0-3.0); HEMOGLOBIN 11.4 g/dl (12.0-15.5); LYMPH # 1.4 10^3/uL (1.5-5.0); LYMPH % 35.2 % (24.0-44.0); MEAN CORPUSCULAR HGB CONC 32.6 g/dl (32.0-36.5); MEAN CORPUSCULAR VOLUME 98.3 fl (80.0-96.0); MONO # 0.3 10^3/uL (0.0-0.8); MONO % 7.3 % (0.0-5.0); NEUTROPHILS # 2.2 10^3/uL (1.5-8.5); NEUTROPHILS % 54.9 % (36.0-66.0); PLATELET COUNT, AUTOMATED 210 10^3/uL (150-450); RED BLOOD COUNT 3.56 10^6/uL (4.00-5.40)
[2020-01-07 08:12] LABS: ALBUMIN 3.5 GM/DL (3.2-5.2); ALT/SGPT 22 U/L (12-78); BILIRUBIN,TOTAL 0.3 MG/DL (0.2-1.0); BLOOD UREA NITROGEN 19 MG/DL (7-18); CALCIUM LEVEL 9.7 MG/DL (8.8-10.2); CARBON DIOXIDE LEVEL 30 MEQ/L (21-32); CHLORIDE LEVEL 106 MEQ/L (98-107); CREATININE FOR GFR 0.53 MG/DL (0.55-1.30); GLOMERULAR FILTRATION RATE > 60.0 (>39); GLUCOSE, FASTING 148 MG/DL (70-100); MAGNESIUM LEVEL 1.9 MG/DL (1.8-2.4); POTASSIUM SERUM 4.3 MEQ/L (3.5-5.1); SODIUM LEVEL 140 MEQ/L (136-145); TOTAL PROTEIN 7.2 GM/DL (6.4-8.2)
== END ==
LOC: M LAB 07:14
PROVIDERS: ATTEND Nurse Practitioner
DX: C56.9 Malignant neoplasm of unspecified ovary (principal); Z79.899 Other long term (current) drug therapy

== ENCOUNTER → 2020-01-14 | Outpatient (CLI) | payer MEDICARE ==
[2020-01-14 07:20] LABS: BASO % 0.9 % (0.0-1.0); EOS % 0.5 % (0.0-3.0); HEMATOCRIT 34.2 % (36.0-47.0); HEMOGLOBIN 11.2 g/dl (12.0-15.5); LYMPH # 1.9 10^3/uL (1.5-5.0); LYMPH % 43.2 % (24.0-44.0); MEAN CORPUSCULAR HGB CONC 32.7 g/dl (32.0-36.5); MEAN CORPUSCULAR VOLUME 97.7 fl (80.0-96.0); MONO # 0.2 10^3/uL (0.0-0.8); MONO % 5.1 % (0.0-5.0); NEUTROPHILS # 2.2 10^3/uL (1.5-8.5); NEUTROPHILS % 49.6 % (36.0-66.0); PLATELET COUNT, AUTOMATED 155 10^3/uL (150-450); WHITE BLOOD COUNT 4.4 10^3/uL (4.0-10.0)
[2020-01-14 07:45] LABS: ALBUMIN 3.7 GM/DL (3.2-5.2); ALT/SGPT 19 U/L (12-78); BILIRUBIN,TOTAL 0.3 MG/DL (0.2-1.0); BLOOD UREA NITROGEN 21 MG/DL (7-18); CALCIUM LEVEL 9.6 MG/DL (8.8-10.2); CARBON DIOXIDE LEVEL 30 MEQ/L (21-32); CHLORIDE LEVEL 105 MEQ/L (98-107); CREATININE FOR GFR 0.57 MG/DL (0.55-1.30); GLOMERULAR FILTRATION RATE > 60.0 (>39); GLUCOSE, FASTING 168 MG/DL (70-100); POTASSIUM SERUM 4.2 MEQ/L (3.5-5.1); SODIUM LEVEL 137 MEQ/L (136-145); TOTAL PROTEIN 7.1 GM/DL (6.4-8.2)
== END ==
LOC: M LAB 06:50
PROVIDERS: ATTEND Nurse Practitioner
DX: C56.9 Malignant neoplasm of unspecified ovary (principal); Z79.899 Other long term (current) drug therapy

== ENCOUNTER → 2020-01-21 | Outpatient (CLI) | payer MEDICARE ==
[2020-01-21 07:14] LABS: BASO % 0.5 % (0.0-1.0); HEMATOCRIT 34.3 % (36.0-47.0); HEMOGLOBIN 11.2 g/dl (12.0-15.5); LYMPH # 1.6 10^3/uL (1.5-5.0); LYMPH % 39.2 % (24.0-44.0); MEAN CORPUSCULAR HEMOGLOBIN 31.5 pg (27.0-33.0); MEAN CORPUSCULAR HGB CONC 32.7 g/dl (32.0-36.5); MEAN CORPUSCULAR VOLUME 96.3 fl (80.0-96.0); MONO # 0.2 10^3/uL (0.0-0.8); MONO % 3.9 % (0.0-5.0); NEUTROPHILS # 2.3 10^3/uL (1.5-8.5); NEUTROPHILS % 54.7 % (36.0-66.0); PLATELET COUNT, AUTOMATED 103 10^3/uL (150-450); RED BLOOD COUNT 3.56 10^6/uL (4.00-5.40); WHITE BLOOD COUNT 4.1 10^3/uL (4.0-10.0)
[2020-01-21 07:36] LABS: ALBUMIN 3.6 GM/DL (3.2-5.2); ALT/SGPT 20 U/L (12-78); BILIRUBIN,TOTAL 0.5 MG/DL (0.2-1.0); BLOOD UREA NITROGEN 29 MG/DL (7-18); CALCIUM LEVEL 9.6 MG/DL (8.8-10.2); CARBON DIOXIDE LEVEL 29 MEQ/L (21-32); CHLORIDE LEVEL 106 MEQ/L (98-107); CREATININE FOR GFR 0.58 MG/DL (0.55-1.30); GLOMERULAR FILTRATION RATE > 60.0 (>39); GLUCOSE, FASTING 150 MG/DL (70-100); POTASSIUM SERUM 4.1 MEQ/L (3.5-5.1); SODIUM LEVEL 137 MEQ/L (136-145); TOTAL PROTEIN 7.3 GM/DL (6.4-8.2)
== END ==
LOC: M LAB 06:54
PROVIDERS: ATTEND Nurse Practitioner
DX: C56.9 Malignant neoplasm of unspecified ovary (principal); Z79.899 Other long term (current) drug therapy

== ENCOUNTER → 2020-01-28 | Outpatient (CLI) | payer MEDICARE ==
[2020-01-28 07:16] LABS: BASO % 0.6 % (0.0-1.0); EOS % 0.6 % (0.0-3.0); HEMATOCRIT 34.6 % (36.0-47.0); HEMOGLOBIN 11.3 g/dl (12.0-15.5); LYMPH # 1.6 10^3/uL (1.5-5.0); LYMPH % 47.5 % (24.0-44.0); MEAN CORPUSCULAR HGB CONC 32.7 g/dl (32.0-36.5); MONO # 0.2 10^3/uL (0.0-0.8); MONO % 5.2 % (0.0-5.0); NEUTROPHILS # 1.6 10^3/uL (1.5-8.5); NEUTROPHILS % 45.5 % (36.0-66.0); PLATELET COUNT, AUTOMATED 193 10^3/uL (150-450); RED BLOOD COUNT 3.53 10^6/uL (4.00-5.40); WHITE BLOOD COUNT 3.4 10^3/uL (4.0-10.0)
[2020-01-28 07:49] LABS: ALBUMIN 3.7 GM/DL (3.2-5.2); ALT/SGPT 25 U/L (12-78); BILIRUBIN,TOTAL 0.4 MG/DL (0.2-1.0); BLOOD UREA NITROGEN 20 MG/DL (7-18); CALCIUM LEVEL 9.9 MG/DL (8.8-10.2); CARBON DIOXIDE LEVEL 31 MEQ/L (21-32); CHLORIDE LEVEL 105 MEQ/L (98-107); CREATININE FOR GFR 0.64 MG/DL (0.55-1.30); GLOMERULAR FILTRATION RATE > 60.0 (>39); GLUCOSE, FASTING 174 MG/DL (70-100); POTASSIUM SERUM 4.4 MEQ/L (3.5-5.1); SODIUM LEVEL 139 MEQ/L (136-145); TOTAL PROTEIN 7.2 GM/DL (6.4-8.2)
== END ==
LOC: M LAB 06:50
PROVIDERS: ATTEND Nurse Practitioner
DX: C56.9 Malignant neoplasm of unspecified ovary (principal); Z79.899 Other long term (current) drug therapy

== ENCOUNTER → 2020-02-06 | Outpatient (CLI) | payer MEDICARE ==
[2020-02-06 07:09] LABS: BASO # 0.1 10^3/uL (0.0-0.2); BASO % 1.3 % (0.0-1.0); EOS % 0.5 % (0.0-3.0); HEMATOCRIT 33.9 % (36.0-47.0); HEMOGLOBIN 11.2 g/dl (12.0-15.5); LYMPH # 1.6 10^3/uL (1.5-5.0); LYMPH % 44.2 % (24.0-44.0); MEAN CORPUSCULAR HEMOGLOBIN 32.1 pg (27.0-33.0); MEAN CORPUSCULAR VOLUME 97.1 fl (80.0-96.0); MONO # 0.4 10^3/uL (0.0-0.8); MONO % 11.3 % (0.0-5.0); NEUTROPHILS # 1.4 10^3/uL (1.5-8.5); NEUTROPHILS % 37.8 % (36.0-66.0); PLATELET COUNT, AUTOMATED 235 10^3/uL (150-450); RED BLOOD COUNT 3.49 10^6/uL (4.00-5.40); WHITE BLOOD COUNT 3.7 10^3/uL (4.0-10.0)
== END ==
LOC: M LAB 06:47
PROVIDERS: ATTEND Nurse Practitioner
DX: C56.9 Malignant neoplasm of unspecified ovary (principal)

== ENCOUNTER → 2020-02-13 | Outpatient (CLI) | payer MEDICARE ==
[2020-02-13 07:15] LABS: BASO % 0.6 % (0.0-1.0); EOS % 0.5 % (0.0-3.0); HEMATOCRIT 36.2 % (36.0-47.0); HEMOGLOBIN 11.8 g/dl (12.0-15.5); LYMPH # 1.9 10^3/uL (1.5-5.0); LYMPH % 28.1 % (24.0-44.0); MEAN CORPUSCULAR HEMOGLOBIN 31.6 pg (27.0-33.0); MEAN CORPUSCULAR HGB CONC 32.6 g/dl (32.0-36.5); MEAN CORPUSCULAR VOLUME 97.1 fl (80.0-96.0); MONO # 0.7 10^3/uL (0.0-0.8); MONO % 10.4 % (0.0-5.0); NEUTROPHILS # 3.9 10^3/uL (1.5-8.5); NEUTROPHILS % 58.6 % (36.0-66.0); PLATELET COUNT, AUTOMATED 177 10^3/uL (150-450); RED BLOOD COUNT 3.73 10^6/uL (4.00-5.40); WHITE BLOOD COUNT 6.7 10^3/uL (4.0-10.0)
[2020-02-13 07:49] LABS: ALBUMIN 3.6 GM/DL (3.2-5.2); ALT/SGPT 36 U/L (12-78); BILIRUBIN,TOTAL 0.4 MG/DL (0.2-1.0); BLOOD UREA NITROGEN 16 MG/DL (7-18); CALCIUM LEVEL 9.3 MG/DL (8.8-10.2); CARBON DIOXIDE LEVEL 29 MEQ/L (21-32); CHLORIDE LEVEL 106 MEQ/L (98-107); CREATININE FOR GFR 0.61 MG/DL (0.55-1.30); GLOMERULAR FILTRATION RATE > 60.0 (>39); GLUCOSE, FASTING 166 MG/DL (70-100); MAGNESIUM LEVEL 1.9 MG/DL (1.8-2.4); SODIUM LEVEL 141 MEQ/L (136-145); TOTAL PROTEIN 7.1 GM/DL (6.4-8.2)
[2020-02-13 08:42] LABS: CA 125 5.1 U/ML (<30.2)
== END ==
LOC: M LAB 06:50
PROVIDERS: ATTEND Nurse Practitioner
DX: Z51.81 Encounter for therapeutic drug level monitoring (principal); Z79.899 Other long term (current) drug therapy; C56.9 Malignant neoplasm of unspecified ovary

== ENCOUNTER → 2020-02-20 | Outpatient (CLI) | payer MEDICARE ==
[~2020-02-20] MED LIST changes: -METF-791 PO; +METF-838 PO
[2020-02-20 07:20] LABS: BASO # 0.1 10^3/uL (0.0-0.2); BASO % 0.8 % (0.0-1.0); EOS # 0.1 10^3/uL (0.0-0.5); HEMATOCRIT 36.8 % (36.0-47.0); HEMOGLOBIN 12.2 g/dl (12.0-15.5); LYMPH % 31.8 % (24.0-44.0); MEAN CORPUSCULAR HGB CONC 33.2 g/dl (32.0-36.5); MEAN CORPUSCULAR VOLUME 96.6 fl (80.0-96.0); MONO # 0.6 10^3/uL (0.0-0.8); MONO % 9.7 % (0.0-5.0); NEUTROPHILS # 3.4 10^3/uL (1.5-8.5); NEUTROPHILS % 54.9 % (36.0-66.0); PLATELET COUNT, AUTOMATED 157 10^3/uL (150-450); RED BLOOD COUNT 3.81 10^6/uL (4.00-5.40); WHITE BLOOD COUNT 6.2 10^3/uL (4.0-10.0)
== END ==
LOC: M LAB 06:49
PROVIDERS: ATTEND Nurse Practitioner
DX: C56.9 Malignant neoplasm of unspecified ovary (principal); Z79.899 Other long term (current) drug therapy

== ENCOUNTER → 2020-02-27 | Outpatient (CLI) | payer MEDICARE ==
[2020-02-27 07:10] LABS: BASO # 0.1 10^3/uL (0.0-0.2); BASO % 0.7 % (0.0-1.0); EOS # 0.1 10^3/uL (0.0-0.5); EOS % 2.1 % (0.0-3.0); HEMATOCRIT 35.3 % (36.0-47.0); LYMPH # 2.1 10^3/uL (1.5-5.0); LYMPH % 30.6 % (24.0-44.0); MEAN CORPUSCULAR HEMOGLOBIN 33.1 pg (27.0-33.0); MEAN CORPUSCULAR VOLUME 97.5 fl (80.0-96.0); MONO # 0.6 10^3/uL (0.0-0.8); MONO % 8.8 % (0.0-5.0); NEUTROPHILS # 3.8 10^3/uL (1.5-8.5); NEUTROPHILS % 56.6 % (36.0-66.0); PLATELET COUNT, AUTOMATED 174 10^3/uL (150-450); RED BLOOD COUNT 3.62 10^6/uL (4.00-5.40); WHITE BLOOD COUNT 6.7 10^3/uL (4.0-10.0)
[2020-02-27 07:32] LABS: ALBUMIN 3.7 GM/DL (3.2-5.2); ALT/SGPT 29 U/L (12-78); BILIRUBIN,TOTAL 0.4 MG/DL (0.2-1.0); BLOOD UREA NITROGEN 23 MG/DL (7-18); CALCIUM LEVEL 9.1 MG/DL (8.8-10.2); CARBON DIOXIDE LEVEL 29 MEQ/L (21-32); CHLORIDE LEVEL 105 MEQ/L (98-107); GLOMERULAR FILTRATION RATE > 60.0 (>39); GLUCOSE, FASTING 170 MG/DL (70-100); MAGNESIUM LEVEL 1.9 MG/DL (1.8-2.4); POTASSIUM SERUM 4.1 MEQ/L (3.5-5.1); SODIUM LEVEL 139 MEQ/L (136-145); TOTAL PROTEIN 7.3 GM/DL (6.4-8.2)
[2020-02-27 10:36] LABS: CA 125 4.9 U/ML (<30.2)
== END ==
LOC: M LAB 06:41
PROVIDERS: ATTEND Nurse Practitioner
DX: C56.9 Malignant neoplasm of unspecified ovary (principal); Z79.899 Other long term (current) drug therapy

== ENCOUNTER → 2020-08-16 | Outpatient (CLI) | payer MEDICARE ==
[2020-08-16 07:23] LABS: HEMATOCRIT 40.9 % (36.0-47.0); HEMOGLOBIN 13.4 g/dl (12.0-15.5); MEAN CORPUSCULAR HEMOGLOBIN 30.9 pg (27.0-33.0); MEAN CORPUSCULAR HGB CONC 32.8 g/dl (32.0-36.5); MEAN CORPUSCULAR VOLUME 94.5 fl (80.0-96.0); PLATELET COUNT, AUTOMATED 239 10^3/uL (150-450); RED BLOOD COUNT 4.33 10^6/uL (4.00-5.40); WHITE BLOOD COUNT 6.6 10^3/uL (4.0-10.0)
[2020-08-16 07:47] LABS: BLOOD UREA NITROGEN 24 MG/DL (7-18); CALCIUM LEVEL 10.1 MG/DL (8.8-10.2); CARBON DIOXIDE LEVEL 29 MEQ/L (21-32); CHLORIDE LEVEL 105 MEQ/L (98-107); CREATININE FOR GFR 0.63 MG/DL (0.55-1.30); GLOMERULAR FILTRATION RATE > 60.0 (>39); GLUCOSE, FASTING 194 MG/DL (70-100); POTASSIUM SERUM 4.1 MEQ/L (3.5-5.1); SODIUM LEVEL 139 MEQ/L (136-145)
[2020-08-16 11:18] LABS: CA 125 4.9 U/ML (<30.2)
== END ==
LOC: M LAB 06:58
PROVIDERS: ATTEND Obstetrics & Gynecology
DX: C56.9 Malignant neoplasm of unspecified ovary (principal); K63.1 Perforation of intestine (nontraumatic); N73.9 Female pelvic inflammatory disease, unspecified; Z93.3 Colostomy status

== ENCOUNTER 2020-10-13 10:24 | Outpatient (CLI) | payer MEDICARE ==
[~2020-10-13] VITALS: Ht 149.9 cm; Wt 58.2 kg
[~2020-10-13 10:24] MED LIST changes: +SODIUM CHLORIDE 0.9% INJ 10 ML SYR IV SCH
[2020-10-13] MEDS ORDERED: LETR2.5T2 PO (10:44)
[2020-10-13] MEDS ORDERED: VITAD400CA PO (10:46)
[2020-10-13 11:00] VITALS: BP 120/84
== END 2020-10-13 11:00 | disposition home or self-care (01) ==
LOC: M INFU 10:24
PROVIDERS: ATTEND Obstetrics & Gynecology
DX: C56.9 Malignant neoplasm of unspecified ovary (principal)
CPT/HCPCS: 96523; J1642

== ENCOUNTER 2020-11-10 10:17 | Outpatient (CLI) | payer MEDICARE ==
[~2020-11-10] VITALS: Ht 149.9 cm; Wt 58.2 kg
[~2020-11-10 10:17] MED LIST changes: +LETR2.5T2 PO; +VITAD400CA PO
[2020-11-10 10:20] VITALS: BP 130/78
== END 2020-11-10 10:45 | disposition home or self-care (01) ==
LOC: M INFU 10:17
PROVIDERS: ATTEND Obstetrics & Gynecology
DX: C56.9 Malignant neoplasm of unspecified ovary (principal); Z79.899 Other long term (current) drug therapy
CPT/HCPCS: 96523; J1642

== ENCOUNTER 2021-01-05 10:06 | Outpatient (CLI) | payer MEDICARE ==
[~2021-01-05] VITALS: Ht 149.9 cm; Wt 58.2 kg
[~2021-01-05 10:06] MED LIST changes: -SODIUM CHLORIDE 0.9% INJ 10 ML SYR IV SCH
[2021-01-05] MEDS: SODIUM CHLORIDE 0.9% INJ 10 ML SYR IV SCH (10:13)
[2021-01-05 10:30] VITALS: BP 139/69
== END 2021-01-05 10:30 | disposition home or self-care (01) ==
LOC: M INFU 10:06
PROVIDERS: ATTEND Obstetrics & Gynecology
DX: C54.1 Malignant neoplasm of endometrium (principal)

== ENCOUNTER → 2021-01-27 | Outpatient (CLI) | payer MEDICARE ==
[2021-01-27 08:37] LABS: BASO # 0.1 10^3/uL (0.0-0.2); BASO % 0.9 % (0.0-1.0); EOS # 0.1 10^3/uL (0.0-0.5); EOS % 1.8 % (0.0-3.0); HEMATOCRIT 41.6 % (36.0-47.0); HEMOGLOBIN 13.6 g/dl (12.0-15.5); LYMPH % 30.3 % (24.0-44.0); MEAN CORPUSCULAR HEMOGLOBIN 31.6 pg (27.0-33.0); MEAN CORPUSCULAR HGB CONC 32.7 g/dl (32.0-36.5); MEAN CORPUSCULAR VOLUME 96.5 fl (80.0-96.0); MONO # 0.5 10^3/uL (0.0-0.8); MONO % 7.6 % (2.0-8.0); NEUTROPHILS # 3.8 10^3/uL (1.5-8.5); NEUTROPHILS % 58.6 % (36.0-66.0); PLATELET COUNT, AUTOMATED 243 10^3/uL (150-450); RED BLOOD COUNT 4.31 10^6/uL (4.00-5.40); WHITE BLOOD COUNT 6.6 10^3/uL (4.0-10.0)
[2021-01-27 09:05] LABS: ALT/SGPT 23 U/L (12-78); BILIRUBIN,TOTAL 0.6 MG/DL (0.2-1.0); BLOOD UREA NITROGEN 20 MG/DL (7-18); CALCIUM LEVEL 10.2 MG/DL (8.8-10.2); CARBON DIOXIDE LEVEL 29 MEQ/L (21-32); CHLORIDE LEVEL 105 MEQ/L (98-107); CHOLESTEROL LEVEL 167 MG/DL (<200); CREATININE FOR GFR 0.57 MG/DL (0.55-1.30); GLOMERULAR FILTRATION RATE > 60.0 (>39); GLUCOSE, FASTING 223 MG/DL (70-100); HDL CHOLESTEROL 43 MG/DL (>40); POTASSIUM SERUM 4.3 MEQ/L (3.5-5.1); SODIUM LEVEL 139 MEQ/L (136-145); TRIGLYCERIDES LEVEL 114 MG/DL (<150)
[2021-01-27 09:06] LABS: ALBUMIN 3.8 GM/DL (3.2-5.2); CHOLESTEROL RISK RATIO 3.883 (<5); LDL CHOLESTEROL 101 MG/DL (<100); NON-HDL-C 124 MG/DL; TOTAL PROTEIN 7.4 GM/DL (6.4-8.2)
[2021-01-27 09:15] LABS: MALB URINE SIEMENS 12.3 MG/L
[2021-01-27 17:50] LABS: HEMOGLOBIN A1c 7.8 %
== END ==
LOC: M LAB 07:04
PROVIDERS: ATTEND Family Medicine
DX: E11.69 Type 2 diabetes mellitus with other specified complication (principal); I10 Essential (primary) hypertension

== ENCOUNTER 2021-02-02 10:16 | Outpatient (CLI) | payer MEDICARE ==
[~2021-02-02 10:16] MED LIST changes: +SODIUM CHLORIDE 0.9% INJ 10 ML SYR IV SCH
[2021-02-02 10:30] VITALS: BP 140/71
== END 2021-02-02 14:09 | disposition home or self-care (01) ==
LOC: M INFU 10:16
PROVIDERS: ATTEND Obstetrics & Gynecology
DX: C56.9 Malignant neoplasm of unspecified ovary (principal)
CPT/HCPCS: 96523; J1642

== ENCOUNTER 2021-03-02 09:53 | Outpatient (CLI) | payer MEDICARE ==
[~2021-03-02] VITALS: Ht 152.4 cm; Wt 57.2 kg
[2021-03-02 09:55] VITALS: BP 136/67
== END 2021-03-02 12:10 | disposition home or self-care (01) ==
LOC: M INFU 09:53
PROVIDERS: ATTEND Obstetrics & Gynecology
DX: C56.9 Malignant neoplasm of unspecified ovary (principal)
CPT/HCPCS: 96523; J1642

== ENCOUNTER → 2021-04-25 | Outpatient (CLI) | payer MEDICARE ==
[~2021-04-25] MED LIST changes: -SODIUM CHLORIDE 0.9% INJ 10 ML SYR IV SCH
[2021-04-25 10:48] LABS: HEMOGLOBIN A1c 6.7 %
== END ==
LOC: M LAB 08:25
PROVIDERS: ATTEND Family Medicine
DX: E11.69 Type 2 diabetes mellitus with other specified complication (principal)

== ENCOUNTER 2021-05-02 09:01 | Outpatient (CLI) | payer MEDICARE ==
[~2021-05-02] VITALS: Ht 149.9 cm; Wt 58.2 kg
[~2021-05-02 09:01] MED LIST changes: +SODIUM CHLORIDE 0.9% INJ 10 ML SYR IV SCH
[2021-05-02 09:05] VITALS: BP 133/61
== END 2021-05-02 09:26 | disposition home or self-care (01) ==
LOC: M INFU 09:01
PROVIDERS: ATTEND Obstetrics & Gynecology
DX: C56.9 Malignant neoplasm of unspecified ovary (principal)
CPT/HCPCS: 96523; J1642

== ENCOUNTER 2021-05-30 09:27 | Outpatient (CLI) | payer MEDICARE ==
[~2021-05-30] VITALS: Ht 149.9 cm; Wt 58.2 kg
[2021-05-30 09:44] VITALS: BP 173/81
== END 2021-05-30 09:55 | disposition home or self-care (01) ==
LOC: M INFU 09:27
PROVIDERS: ATTEND Obstetrics & Gynecology
DX: C56.9 Malignant neoplasm of unspecified ovary (principal)
CPT/HCPCS: 96523; J1642

== ENCOUNTER 2021-07-01 15:06 | Outpatient (CLI) | payer MEDICARE ==
[~2021-07-01] VITALS: Ht 149.9 cm; Wt 58.2 kg
[~2021-07-01 15:06] MED LIST changes: -SODIUM CHLORIDE 0.9% INJ 10 ML SYR IV SCH
[2021-07-01 15:10] VITALS: BP 139/65
[2021-07-01] MEDS ORDERED: SODIUM CHLORIDE 0.9% INJ 10 ML SYR IV PRN (15:25)
[2021-07-02] MEDS ORDERED: SODIUM CHLORIDE 0.9% INJ 10 ML SYR IV SCH (09:00)
== END 2021-07-01 15:35 | disposition home or self-care (01) ==
LOC: M INFU 15:06
PROVIDERS: ATTEND Nurse Practitioner
DX: Z45.2 Encounter for adjustment and management of vascular access device (principal)
CPT/HCPCS: 96523; J1642

== ENCOUNTER 2021-08-12 14:33 | Outpatient (CLI) | payer MEDICARE ==
[~2021-08-12 14:33] MED LIST changes: +SODIUM CHLORIDE 0.9% INJ 10 ML SYR IV SCH
[2021-08-12 14:45] VITALS: BP 143/89
[2021-08-12] MEDS ORDERED: SODIUM CHLORIDE 0.9% INJ 10 ML SYR IV PRN (15:00)
== END 2021-08-12 14:50 | disposition home or self-care (01) ==
LOC: M INFU 14:33
PROVIDERS: ATTEND Nurse Practitioner
DX: Z45.2 Encounter for adjustment and management of vascular access device (principal)
CPT/HCPCS: 96523; J1642

== ENCOUNTER 2021-10-24 07:17 | Outpatient (CLI) | payer MEDICARE ==
[~2021-10-24] VITALS: Ht 149.9 cm; Wt 58.0 kg
[~2021-10-24 07:17] MED LIST changes: +LOSA25TA13 PO; -LOSA25TA14 PO; -SODIUM CHLORIDE 0.9% INJ 10 ML SYR IV SCH
[2021-10-24 07:30] VITALS: BP 143/87
[2021-10-24] MEDS ORDERED: SODIUM CHLORIDE 0.9% INJ 10 ML SYR IV SCH (09:00)
== END 2021-10-24 07:30 | disposition home or self-care (01) ==
LOC: M INFU 07:17
PROVIDERS: ATTEND Nurse Practitioner
DX: Z45.2 Encounter for adjustment and management of vascular access device (principal)
CPT/HCPCS: 96523; J1642

== ENCOUNTER 2021-11-21 07:06 | Outpatient (CLI) | payer MEDICARE ==
[~2021-11-21] VITALS: Ht 152.4 cm; Wt 54.5 kg
[2021-11-21 07:10] VITALS: BP 138/64
[2021-11-21 07:49] VITALS: BP 134/74
[2021-11-21] MEDS ORDERED: SODIUM CHLORIDE 0.9% INJ 10 ML SYR IV SCH (09:00)
== END 2021-11-21 07:50 | disposition home or self-care (01) ==
LOC: M INFU 07:06
PROVIDERS: ATTEND Nurse Practitioner
DX: Z45.2 Encounter for adjustment and management of vascular access device (principal)
CPT/HCPCS: 96523; J1642

== ENCOUNTER → 2021-11-22 | Outpatient (CLI) | payer MEDICARE ==
[2021-11-22 09:48] LABS: BLOOD UREA NITROGEN 22 MG/DL (7-18); CARBON DIOXIDE LEVEL 26 MEQ/L (21-32); CHLORIDE LEVEL 105 MEQ/L (98-107); GLOMERULAR FILTRATION RATE > 60.0 (>39); GLUCOSE, FASTING 211 MG/DL (70-100); POTASSIUM SERUM 4.6 MEQ/L (3.5-5.1); SODIUM LEVEL 136 MEQ/L (136-145)
== END ==
LOC: M LAB 09:05
PROVIDERS: ATTEND Nurse Practitioner
DX: C56.9 Malignant neoplasm of unspecified ovary (principal)

== ENCOUNTER → 2021-11-28 | Outpatient (CLI) | payer MEDICARE ==
[~2021-11-28] MED LIST changes: +GASTROGRAFIN SOLUTION 30ML (Q9963) As Ordered ONE; +ISOVUE-370 76% 100ML VIAL As Ordered ONE
== END ==
LOC: M RAD 12:49
PROVIDERS: ATTEND Obstetrics & Gynecology
DX: C56.9 Malignant neoplasm of unspecified ovary (principal)
CPT/HCPCS: 74177; Q9963; Q9967

== ENCOUNTER 2022-01-02 06:58 | Outpatient (CLI) | payer MEDICARE ==
[~2022-01-02] VITALS: Ht 157.5 cm; Wt 54.5 kg
[~2022-01-02 06:58] MED LIST changes: -GASTROGRAFIN SOLUTION 30ML (Q9963) As Ordered ONE; -ISOVUE-370 76% 100ML VIAL As Ordered ONE
[2022-01-02] MEDS ORDERED: SODIUM CHLORIDE 0.9% INJ 10 ML SYR IV SCH (07:00)
[2022-01-02 07:15] VITALS: BP 141/72
== END 2022-01-02 07:20 | disposition home or self-care (01) ==
LOC: M INFU 06:58
PROVIDERS: ATTEND Nurse Practitioner
DX: Z45.2 Encounter for adjustment and management of vascular access device (principal)
CPT/HCPCS: 96523; J1642

== ENCOUNTER → 2022-01-30 | Outpatient (CLI) | payer MEDICARE ==
[2022-01-30 10:01] LABS: HEMOGLOBIN A1c 6.9 %
[2022-01-30 10:11] LABS: ALBUMIN 3.9 GM/DL (3.2-5.2); BILIRUBIN,DIRECT 0.2 MG/DL (0.0-0.2); BILIRUBIN,TOTAL 1.1 MG/DL (0.2-1.0); CHOLESTEROL RISK RATIO 2.333 (<5); TOTAL PROTEIN 7.3 GM/DL (6.4-8.2)
== END ==
LOC: M LAB 06:59
PROVIDERS: ATTEND Family Medicine
DX: E11.69 Type 2 diabetes mellitus with other specified complication (principal)

== ENCOUNTER 2022-02-13 07:03 | Outpatient (CLI) | payer MEDICARE ==
[~2022-02-13] VITALS: Ht 152.4 cm; Wt 54.5 kg
[2022-02-13 07:15] VITALS: BP 144/67
[2022-02-13] MEDS ORDERED: SODIUM CHLORIDE 0.9% INJ 10 ML SYR IV SCH (09:00)
== END 2022-02-13 07:15 | disposition home or self-care (01) ==
LOC: M INFU 07:03
PROVIDERS: ATTEND Nurse Practitioner
DX: Z45.2 Encounter for adjustment and management of vascular access device (principal)
CPT/HCPCS: 96523; J1642

== ENCOUNTER 2022-03-27 08:11 | Outpatient (CLI) | payer MEDICARE ==
[2022-03-27 08:20] VITALS: BP 127/64
[2022-03-27] MEDS ORDERED: SODIUM CHLORIDE 0.9% INJ 10 ML SYR IV SCH (09:00)
== END 2022-03-27 08:35 | disposition home or self-care (01) ==
LOC: M INFU 08:11
PROVIDERS: ATTEND Nurse Practitioner
DX: Z45.2 Encounter for adjustment and management of vascular access device (principal)
CPT/HCPCS: 96523; J1642

== ENCOUNTER → 2022-05-08 | Outpatient (CLI) | payer MEDICARE ==
[~2022-05-08] MED LIST changes: +SODIUM CHLORIDE 0.9% INJ 10 ML SYR IV SCH
[2022-05-08 07:55] VITALS: BP 140/81
== END ==
LOC: M INFU 09:00
PROVIDERS: ATTEND Nurse Practitioner
DX: Z45.2 Encounter for adjustment and management of vascular access device (principal)
CPT/HCPCS: 96523; J1642

== ENCOUNTER → 2022-06-20 | Outpatient (CLI) | payer MEDICARE ==
[~2022-06-20] VITALS: Ht 152.4 cm; Wt 54.5 kg
[2022-06-20 08:28] VITALS: BP 148/72
== END ==
LOC: M INFU 08:10
PROVIDERS: ATTEND Nurse Practitioner
DX: Z45.2 Encounter for adjustment and management of vascular access device (principal)
CPT/HCPCS: 96523; J1642

== ENCOUNTER → 2022-07-31 | Outpatient (CLI) | payer MEDICARE ==
[~2022-07-31] MED LIST changes: -SODIUM CHLORIDE 0.9% INJ 10 ML SYR IV SCH
[2022-07-31 08:28] LABS: BASO % 0.5 % (0.0-1.0); EOS # 0.2 10^3/uL (0.0-0.5); EOS % 2.2 % (0.0-3.0); HEMATOCRIT 38.4 % (36.0-47.0); HEMOGLOBIN 12.7 g/dl (12.0-15.5); LYMPH # 1.9 10^3/uL (1.5-5.0); LYMPH % 24.2 % (24.0-44.0); MEAN CORPUSCULAR HEMOGLOBIN 31.5 pg (27.0-33.0); MEAN CORPUSCULAR HGB CONC 33.1 g/dl (32.0-36.5); MEAN CORPUSCULAR VOLUME 95.3 fl (80.0-96.0); MONO # 0.4 10^3/uL (0.0-0.8); MONO % 5.6 % (2.0-8.0); NEUTROPHILS # 5.2 10^3/uL (1.5-8.5); PLATELET COUNT, AUTOMATED 249 10^3/uL (150-450); RED BLOOD COUNT 4.03 10^6/uL (4.00-5.40); WHITE BLOOD COUNT 7.8 10^3/uL (4.0-10.0)
[2022-07-31 08:44] LABS: HEMOGLOBIN A1c 7.3 %
[2022-07-31 08:59] LABS: ALBUMIN 3.6 GM/DL (3.2-5.2); ALT/SGPT 24 U/L (12-78); BILIRUBIN,TOTAL 0.6 MG/DL (0.2-1.0); BLOOD UREA NITROGEN 17 MG/DL (7-18); CALCIUM LEVEL 9.7 MG/DL (8.8-10.2); CARBON DIOXIDE LEVEL 29 MEQ/L (21-32); CHLORIDE LEVEL 107 MEQ/L (98-107); CHOLESTEROL LEVEL 104 MG/DL (<200); CHOLESTEROL RISK RATIO 2.418 (<5); CREATININE FOR GFR 0.57 MG/DL (0.55-1.30); GLOMERULAR FILTRATION RATE > 60.0 (>39); GLUCOSE, FASTING 212 MG/DL (70-100); HDL CHOLESTEROL 43 MG/DL (>40); LDL CHOLESTEROL 41 MG/DL (<100); NON-HDL-C 61 MG/DL; POTASSIUM SERUM 4.6 MEQ/L (3.5-5.1); SODIUM LEVEL 139 MEQ/L (136-145); TRIGLYCERIDES LEVEL 98 MG/DL (<150)
[2022-07-31 09:09] LABS: MALB URINE SIEMENS 15.8 MG/L; MAU/CREAT RATIO 12.8 MCG/MG (0.0-30.0)
== END ==
LOC: M LAB 07:38
PROVIDERS: ATTEND Family Medicine
DX: E11.69 Type 2 diabetes mellitus with other specified complication (principal)

== ENCOUNTER 2022-08-01 07:30 | Outpatient (CLI) | payer MEDICARE ==
[~2022-08-01] VITALS: Ht 152.4 cm; Wt 54.5 kg
[2022-08-01] MEDS ORDERED: SODIUM CHLORIDE 0.9% INJ 10 ML SYR IV PRN (07:35)
[2022-08-01 07:46] VITALS: BP 172/75
[2022-08-01] MEDS ORDERED: SODIUM CHLORIDE 0.9% INJ 10 ML SYR IV SCH (09:00)
== END 2022-08-01 07:45 | disposition home or self-care (01) ==
LOC: M INFU 07:30
PROVIDERS: ATTEND Nurse Practitioner
DX: Z45.2 Encounter for adjustment and management of vascular access device (principal)
CPT/HCPCS: 96523; J1642

== ENCOUNTER → 2022-08-24 | Outpatient (CLI) | payer MEDICARE | LOC: M WHC 09:07 | PROVIDERS: ATTEND Family Medicine | DX: Z13.820 Encounter for screening for osteoporosis (principal); M85.88 Other specified disorders of bone density and structure, other site; M81.0 Age-related osteoporosis without current pathological fracture; M85.851 Other specified disorders of bone density and structure, right thigh ==

== ENCOUNTER 2022-09-12 07:37 | Outpatient (CLI) | payer MEDICARE ==
[~2022-09-12] VITALS: Ht 152.4 cm; Wt 54.5 kg
[2022-09-12 07:56] VITALS: BP 134/62
[2022-09-12] MEDS ORDERED: SODIUM CHLORIDE 0.9% INJ 10 ML SYR IV SCH (09:00)
== END 2022-09-12 07:50 ==
LOC: M INFU 07:37
PROVIDERS: ATTEND Nurse Practitioner
DX: Z45.2 Encounter for adjustment and management of vascular access device (principal)
CPT/HCPCS: 96523; J1642

== ENCOUNTER 2022-10-24 07:55 | Outpatient (CLI) | payer MEDICARE ==
[~2022-10-24] VITALS: Ht 152.4 cm; Wt 54.5 kg
[2022-10-24] MEDS ORDERED: SODIUM CHLORIDE 0.9% INJ 10 ML SYR IV PRN (08:00)
[2022-10-24 08:11] VITALS: BP 138/63
[2022-10-24] MEDS ORDERED: SODIUM CHLORIDE 0.9% INJ 10 ML SYR IV SCH (09:00)
== END 2022-10-24 08:15 ==
LOC: M INFU 07:55
PROVIDERS: ATTEND Nurse Practitioner
DX: Z45.2 Encounter for adjustment and management of vascular access device (principal)

== ENCOUNTER → 2022-10-30 | Outpatient (CLI) | payer MEDICARE ==
[2022-10-30 12:30] LABS: HEMOGLOBIN A1c 7.2 % (4.0-6.0)
== END ==
LOC: M LAB 10:52
PROVIDERS: ATTEND Family Medicine
DX: E11.69 Type 2 diabetes mellitus with other specified complication (principal)

== ENCOUNTER 2022-12-05 08:02 | Outpatient (CLI) | payer BC, MEDICARE, OTHER ==
[2022-12-05] MEDS ORDERED: SODIUM CHLORIDE 0.9% INJ 10 ML SYR IV SCH (08:30)
[2022-12-05] MEDS ORDERED: SODIUM CHLORIDE 0.9% INJ 10 ML SYR IV PRN (08:30)
[2022-12-05 08:33] VITALS: BP 128/61
== END 2022-12-05 08:35 ==
LOC: M INFU 08:02
PROVIDERS: ATTEND Nurse Practitioner
DX: Z45.2 Encounter for adjustment and management of vascular access device (principal)

== ENCOUNTER 2023-01-16 07:45 | Outpatient (CLI) | payer MEDICARE ==
[~2023-01-16] VITALS: Ht 152.4 cm; Wt 54.5 kg
[~2023-01-16 07:45] MED LIST changes: +SODIUM CHLORIDE 0.9% INJ 10 ML SYR IV PRN
[2023-01-16 07:56] VITALS: BP 124/60
[2023-01-16] MEDS ORDERED: SODIUM CHLORIDE 0.9% INJ 10 ML SYR IV SCH (09:00)
== END 2023-01-16 08:05 ==
LOC: M INFU 07:45
PROVIDERS: ATTEND Nurse Practitioner
DX: Z45.2 Encounter for adjustment and management of vascular access device (principal)

== ENCOUNTER → 2023-01-30 | Outpatient (CLI) | payer MEDICARE ==
[~2023-01-30] MED LIST changes: -SODIUM CHLORIDE 0.9% INJ 10 ML SYR IV PRN
[2023-01-30 09:16] LABS: HEMOGLOBIN A1c 7.1 % (4.0-6.0)
== END ==
LOC: M LAB 07:07
PROVIDERS: ATTEND Nurse Practitioner Family
DX: E11.36 Type 2 diabetes mellitus with diabetic cataract (principal)

== ENCOUNTER 2023-02-27 07:20 | Outpatient (CLI) | payer MEDICARE ==
[~2023-02-27 07:20] MED LIST changes: +SODIUM CHLORIDE 0.9% INJ 10 ML SYR IV PRN
[2023-02-27 07:30] VITALS: BP 140/59
[2023-02-27] MEDS ORDERED: SODIUM CHLORIDE 0.9% INJ 10 ML SYR IV SCH (09:00)
== END 2023-02-27 07:30 | disposition home or self-care (01) ==
LOC: M INFU 07:20
PROVIDERS: ATTEND Nurse Practitioner
DX: Z45.2 Encounter for adjustment and management of vascular access device (principal)

== ENCOUNTER → 2023-04-10 | Outpatient (CLI) | payer MEDICARE ==
[~2023-04-10] VITALS: Ht 152.4 cm; Wt 54.5 kg
[~2023-04-10] MED LIST changes: +SODIUM CHLORIDE 0.9% INJ 10 ML SYR IV SCH
[2023-04-10 07:43] VITALS: BP 141/62; O2SAT 98
== END ==
LOC: M INFU 07:30
PROVIDERS: ATTEND Nurse Practitioner
DX: Z45.2 Encounter for adjustment and management of vascular access device (principal)

== ENCOUNTER 2023-05-22 08:05 | Outpatient (CLI) | payer MEDICARE ==
[2023-05-22 08:05] VITALS: BP 132/69; O2SAT 97
[~2023-05-22 08:05] MED LIST changes: -SODIUM CHLORIDE 0.9% INJ 10 ML SYR IV PRN; -SODIUM CHLORIDE 0.9% INJ 10 ML SYR IV SCH
[2023-05-22] MEDS: SODIUM CHLORIDE 0.9% INJ 10 ML SYR IV SCH (08:07)
== END 2023-05-22 08:25 | disposition home or self-care (01) ==
LOC: M INFU 08:05
PROVIDERS: ATTEND Nurse Practitioner
DX: Z45.2 Encounter for adjustment and management of vascular access device (principal)

== ENCOUNTER 2023-07-03 07:30 | Outpatient (CLI) | payer MEDICARE ==
[~2023-07-03] VITALS: Ht 157.5 cm; Wt 54.5 kg
[2023-07-03 07:30] VITALS: BP 134/63; O2SAT 98
[2023-07-03] MEDS ORDERED: SODIUM CHLORIDE 0.9% INJ 10 ML SYR IV SCH (09:00)
== END 2023-07-03 07:50 ==
LOC: M INFU 07:30
PROVIDERS: ATTEND Nurse Practitioner
DX: Z45.2 Encounter for adjustment and management of vascular access device (principal)

== ENCOUNTER → 2023-08-02 | Outpatient (CLI) | payer MEDICARE ==
[2023-08-02 08:43] LABS: BASO % 0.6 % (0.0-1.0); EOS # 0.1 10^3/uL (0.0-0.5); EOS % 1.1 % (0.0-3.0); HEMATOCRIT 41.2 % (36.0-47.0); HEMOGLOBIN 13.8 g/dl (12.0-15.5); LYMPH # 1.2 10^3/uL (1.5-5.0); LYMPH % 21.8 % (24.0-44.0); MEAN CORPUSCULAR HEMOGLOBIN 31.6 pg (27.0-33.0); MEAN CORPUSCULAR HGB CONC 33.5 g/dl (32.0-36.5); MEAN CORPUSCULAR VOLUME 94.3 fl (80.0-96.0); MONO # 0.4 10^3/uL (0.0-0.8); NEUTROPHILS # 3.7 10^3/uL (1.5-8.5); NEUTROPHILS % 68.1 % (36.0-66.0); PLATELET COUNT, AUTOMATED 243 10^3/uL (150-450); RED BLOOD COUNT 4.37 10^6/uL (4.00-5.40); WHITE BLOOD COUNT 5.4 10^3/uL (4.0-10.0)
[2023-08-02 09:24] LABS: HEMOGLOBIN A1c 6.1 % (4.0-6.0)
[2023-08-06 11:58] LABS: CREATININE, URINE 147.6 MG/DL; MALB URINE SIEMENS 12.3 UG/ML; MAU/CREAT RATIO 8.3 MG/G CRE (0.0-29)
== END ==
LOC: M LAB 07:43
PROVIDERS: ATTEND Nurse Practitioner Family
DX: E11.36 Type 2 diabetes mellitus with diabetic cataract (principal); I10 Essential (primary) hypertension

== ENCOUNTER 2023-08-14 08:47 | Outpatient (CLI) | payer MEDICARE ==
[~2023-08-14] VITALS: Ht 152.4 cm; Wt 53.2 kg
[2023-08-14 08:50] VITALS: BP 152/72; O2SAT 98
[2023-08-14] MEDS ORDERED: SODIUM CHLORIDE 0.9% INJ 10 ML SYR IV SCH (09:00)
== END 2023-08-14 09:00 ==
LOC: M INFU 08:47
PROVIDERS: ATTEND Nurse Practitioner
DX: Z45.2 Encounter for adjustment and management of vascular access device (principal)

== ENCOUNTER 2023-11-06 07:14 | Outpatient (CLI) | payer MEDICARE ==
[~2023-11-06] VITALS: Ht 152.4 cm; Wt 54.5 kg
[2023-11-06 07:45] VITALS: BP 135/62; O2SAT 96
[2023-11-06] MEDS ORDERED: SODIUM CHLORIDE 0.9% INJ 10 ML SYR IV SCH (09:00)
== END 2023-11-06 07:45 | disposition home or self-care (01) ==
LOC: M INFU 07:14
PROVIDERS: ATTEND Nurse Practitioner
DX: Z45.2 Encounter for adjustment and management of vascular access device (principal)

== ENCOUNTER 2024-01-29 07:40 | Outpatient (CLI) | payer MEDICARE ==
[~2024-01-29] VITALS: Ht 152.4 cm; Wt 55.0 kg
[2024-01-29 07:45] VITALS: BP 161/71; O2SAT 98
[2024-01-29] MEDS: SODIUM CHLORIDE 0.9% INJ 10 ML SYR IV SCH (07:54)
== END 2024-01-29 07:55 | disposition home or self-care (01) ==
LOC: M INFU 07:40
PROVIDERS: ATTEND Nurse Practitioner
DX: Z45.2 Encounter for adjustment and management of vascular access device (principal)

== ENCOUNTER → 2024-01-31 | Outpatient (CLI) | payer MEDICARE ==
[2024-01-31 10:19] LABS: ALBUMIN 3.5 G/DL (3.2-5.2); ALKALINE PHOSPHATASE 124 U/L (46-116); ALT/SGPT 16 U/L (7.0-40); AST/SGOT 12 U/L (<34); BILIRUBIN,TOTAL 0.7 MG/DL (0.3-1.2); BLOOD UREA NITROGEN 22 MG/DL (9-23); CALCIUM LEVEL 9.6 MG/DL (8.3-10.6); CARBON DIOXIDE LEVEL 30 MMOL/L (20-31); CHLORIDE LEVEL 106 MMOL/L (98-107); CHOLESTEROL LEVEL 104 MG/DL (<200); CREATININE FOR GFR 0.52 MG/DL (0.55-1.30); GLOMERULAR FILTRATION RATE > 60.0 (>39); GLUCOSE, FASTING 161 MG/DL (74-106); HDL CHOLESTEROL 39.9 MG/DL (>40); LDL CHOLESTEROL 45.5 MG/DL (<100); NON-HDL-C 64.1 MG/DL; POTASSIUM SERUM 4.4 MMOL/L (3.5-5.1); SODIUM LEVEL 142 MMOL/L (136-145); TRIGLYCERIDES LEVEL 93 MG/DL (<150)
[2024-01-31 10:21] LABS: HEMOGLOBIN A1c 6.6 % (4.0-6.0)
== END ==
LOC: M LAB 08:39
PROVIDERS: ATTEND Registered Nurse
DX: I10 Essential (primary) hypertension (principal); E78.2 Mixed hyperlipidemia; E11.69 Type 2 diabetes mellitus with other specified complication

== ENCOUNTER 2024-03-11 07:55 | Outpatient (CLI) | payer MEDICARE ==
[2024-03-11 08:05] VITALS: BP 134/64; O2SAT 98
[2024-03-11] MEDS: SODIUM CHLORIDE 0.9% INJ 10 ML SYR IV SCH (08:08)
== END 2024-03-11 08:20 | disposition home or self-care (01) ==
LOC: M INFU 07:55
PROVIDERS: ATTEND Nurse Practitioner
DX: Z45.2 Encounter for adjustment and management of vascular access device (principal)

== ENCOUNTER 2024-04-22 07:23 | Outpatient (CLI) | payer MEDICARE ==
[~2024-04-22] VITALS: Ht 157.5 cm; Wt 53.6 kg
[2024-04-22 07:35] VITALS: BP 140/64; O2SAT 98
[2024-04-22] MEDS: SODIUM CHLORIDE 0.9% INJ 10 ML SYR IV SCH (07:39)
== END 2024-04-22 07:46 ==
LOC: M INFU 07:23
PROVIDERS: ATTEND Nurse Practitioner
DX: Z45.2 Encounter for adjustment and management of vascular access device (principal)

== ENCOUNTER → 2024-08-28 | Outpatient (CLI) | payer MEDICARE | LOC: M WHC 09:26 | PROVIDERS: ATTEND Registered Nurse | DX: Z13.820 Encounter for screening for osteoporosis (principal); M85.88 Other specified disorders of bone density and structure, other site; M81.0 Age-related osteoporosis without current pathological fracture; M85.851 Other specified disorders of bone density and structure, right thigh; M85.852 Other specified disorders of bone density and structure, left thigh ==

== ENCOUNTER → 2025-01-19 | Outpatient (CLI) | payer MEDICARE ==
[2025-01-19 10:17] LABS: BLOOD UREA NITROGEN 16 MG/DL (9-23); CALCIUM LEVEL 10.3 MG/DL (8.3-10.6); CARBON DIOXIDE LEVEL 30 MMOL/L (20-31); CHLORIDE LEVEL 104 MMOL/L (98-107); CREATININE FOR GFR 0.52 MG/DL (0.55-1.30); GLOMERULAR FILTRATION RATE > 60.0 (>39); GLUCOSE, FASTING 193 MG/DL (74-106); POTASSIUM SERUM 4.8 MMOL/L (3.5-5.1); SODIUM LEVEL 141 MMOL/L (136-145)
[2025-01-19 10:17] LABS: MAU/CREAT RATIO 8.8 MCG/MG (0.0-30.0)
[2025-01-19 10:48] LABS: HEMOGLOBIN A1c 6.4 % (4.0-6.0)
== END ==
LOC: M LAB 09:11
PROVIDERS: ATTEND Nurse Practitioner Family
DX: E11.69 Type 2 diabetes mellitus with other specified complication (principal)